=== PATIENT | female | born 1955 | race Caucasian/White ===

== ENCOUNTER 2024-11-16 11:43 | Inpatient (IN) ==
--- NOTE | 2024-11-16 12:44 | XRay Report ---
XR chest 1V portable CLINICAL HISTORY: HTN COMPARISON STUDY: None FINDINGS: Heart size and pulmonary vasculature are normal. Lungs are hyperexpanded. No consolidation or pleural effusion seen. No pneumothorax. IMPRESSION: No acute findings. ACT 112: Negative or not required by law. Electronically signed by: Ba Mann M.D. 11/16/2024 12:43 PM
[2024-11-16 12:48] LABS: Hematocrit (blood only) 38.1 % (37.0-47.0); Hemoglobin 12.8 g/dl (12.0-16.0); Immature Granulocytes # (auto) 0.04 K/uL (0.01-0.20); Immature Granulocytes % (auto) 0.3 %; Mean Corpuscular Hemoglobin 31.4 pg (25.0-34.0); Mean Corpuscular Volume 93.4 fL (80.0-100.0); Platelet Count 227 K/uL (130-400); RDW Standard Deviation 42.5 fL (36.4-46.3); Red Blood Count 4.08 M/uL (4.20-5.40); White Blood Count 13.02 K/ul (4.8-10.8)
[2024-11-16 13:06] LABS: Alanine Aminotransferase 40.0 U/L (7-52); Albumin Globulin Ratio 1.0 (0.9-2); Albumin Level 3.7 gm/dl (3.4-5.0); Alkaline Phosphatase 117.0 U/L (34-104); Anion Gap 8.0 (3-11); Bilirubin,Total 0.4 mg/dl (0.2-1.0); Blood Urea Nitrogen 23.0 mg/dl (6-23); Calcium 9.3 mg/dl (8.6-10.3); Carbon Dioxide 26.0 mmol/L (21-32); Chloride 102.0 mmol/L (98-107); Creatinine Clr Calc Pharmacy 51.0 ml/min; Globulin 3.6 gm/dl (2.5-4.0); Glucose 109.0 mg/dl (70-99(Fasting)); Potassium 4.0 mmol/L (3.5-5.1); Sodium 136.0 mmol/L (136-145); Total Protein 7.3 gm/dl (6.0-8.3)
--- NOTE | 2024-11-16 13:06 | Emergency Department Note ---
History of Present Illness General Chief complaint: Hypertension Stated complaint: IV FOR SODIUM AN DMAGNESIUM Time Seen by Provider: 11/16/24 12:12 Source: patient Mode of arrival: ambulatory Limitations: no limitations History of Present Illness Maximum Pain Intensity: 4 Patient is a 69-year-old female with history of RA and hypertension who presents for uncontrolled high blood pressure at home. She states for the past few weeks she has thought that her blood pressure was elevated however she went to pain management on Wednesday they told her that her blood pressure was too high. She says starting on Wednesday she started to notice some numbness to the mouth as well as gait dysfunction. She says her right leg "just gives out on her". She says she has had this before related to her high blood pressure but never come into the hospital for it. Patient states she does take metoprolol and losartan. She took an extra dose of metoprolol last night and an extra half dose this morning. She recently had 2 injections in her spine on Wednesday and restarted her prednisone and biologic for her RA this week after being off of it since last Wednesday. Patient denies any visual changes, speech changes, headache, facial droop, numbness or weakness to her extremities. Denies any room spinning dizziness at rest. No reported headache, chest pain, shortness of breath, abdominal pain. Home Medications Medication Instructions Recorded Confirmed Type abatacept 125 mg/mL subcutaneous 125 mg subcut DIRECTED 08/25/24 History auto-injector (Orencia ClickJect) duloxetine 60 mg capsule,delayed 60 mg PO DAILY 08/25/24 History release losartan 25 mg tablet 25 mg PO DAILY 08/25/24 History magnesium oxide 400 mg (241.3 mg 400 mg PO DAILY #7 tabs 08/25/24 Rx magnesium) tablet (MagOx) metformin 500 mg tablet,extended 500 mg PO DAILY 08/25/24 History release 24 hr metoprolol tartrate 50 mg tablet 50 mg PO DIRECTED 08/25/24 History pantoprazole 40 mg tablet,delayed 40 mg PO DAILY 08/25/24 History release prednisone 5 mg tablet 5 mg PO DAILY 08/25/24 History Past Med/Surg History Problem List Medical History Hypertension Social History Smoking Status: Current every day smoker Tobacco Type: Cigarettes Preferred Language: Albanian Feels Safe at Home: Yes Review of Systems Review of systems negative outside of positive findings mentioned in HPI. Physical Exam Vital Signs Vital Signs - 24 hr 11/16/24 11:46 11/16/24 12:17 11/16/24 12:35 Temperature 36.5 C Temperature Source Temporal Artery Scan Pulse Rate 72 65 Pulse Rate [Apical] 72 Respiratory Rate 18 20 Respiratory Effort / Characteristics Non-Labored Spontaneous Non-Labored Respiratory Depth Normal Normal Blood Pressure 163/86 H Blood Pressure [Right Arm] 209/90 H Blood Pressure Mean 111 Blood Pressure Mean [Right Arm] 129 Blood Pressure Position Sitting Pulse Oximetry 98 97 Oxygen Delivery Method Room Air Room Air Sepsis Recent Fever Within 48 Hours No Sepsis New/Unexplained Change in Mental Status No Sepsis Action Taken by Nursing No Action Required See below. Constitutional WD/WN, vitals as above Eyes PERRL, conjunctivae normal, anicteric sclerae Respiratory normal respiratory effort, lungs clear to auscultation Cardiovascular RRR, no murmur, no edema Gastrointestinal (Abdomen) normal bowel sounds, soft, nontender, no hepatosplenomegaly Musculoskeletal no cyanosis or clubbing, extremities motor strength 5/5 Skin no rashes, warm and dry Psychiatric Cranial nerves II through XII are intact, normal speech, 5 out of 5 strength in the upper and lower extremities bilaterally, no dysmetria noted in the upper or lower extremities, no visual field cuts noted, NIHSS of 0 Medical Decision Making Laboratory Data 11/16/24 12:01 11/16/24 12:01 Lab Results 11/16/24 Range/Units 12:01 WBC 13.02 H (4.8-10.8) K/ul RBC 4.08 L (4.20-5.40) M/uL Hgb 12.8 (12.0-16.0) g/dl Hct 38.1 (37.0-47.0) % MCV 93.4 (80.0-100.0) fL MCH 31.4 (25.0-34.0) pg MCHC 33.6 (32.0-36.0) g/dL RDW Std Deviation 42.5 (36.4-46.3) fL RDW Coeff of Grey 12.4 (11.5-14.5) % Plt Count 227 (130-400) K/uL MPV 10.2 (9.4-12.4) fL Immature Gran % (Auto) 0.3 % Neut % (Auto) 79.0 % Lymph % (Auto) 10.4 % [place] % (Auto) 10.0 % Eos % (Auto) 0.1 % Baso % (Auto) 0.2 % Neut # (Auto) 10.28 H (1.40-6.50) K/uL Lymph # (Auto) 1.36 (1.20-3.40) K/uL [place] # (Auto) 1.30 H (0.11-0.59) K/uL Eos # (Auto) 0.01 (0.00-0.50) K/uL Baso # (Auto) 0.03 (0.00-0.20) K/uL Immature Gran # (Auto) 0.04 (0.01-0.20) K/uL Imaging Data Radiologist's Impression: Chest X-Ray 11/16/24 12:21 XR chest 1V portable CLINICAL HISTORY: HTN COMPARISON STUDY: None FINDINGS: Heart size and pulmonary vasculature are normal. Lungs are hyperexpanded. No consolidation or pleural effusion seen. No pneumothorax. IMPRESSION: No acute findings. ACT 112: Negative or not required by law. Electronically signed by: Ba Mann M.D. 11/16/2024 12:43 PM Discharge Plan Visit Data Chief Complaint: Hypertension Stated Complaint: IV FOR SODIUM AN DMAGNESIUM ED Provider: Luis Enrique Toledo Forms Stand Alone Forms: My [facility] Prescriptions Prescriptions: No Action prednisone 5 mg tablet 5 mg PO DAILY pantoprazole 40 mg tablet,delayed release (DR/EC) 40 mg PO DAILY losartan 25 mg tablet 25 mg PO DAILY metoprolol tartrate 50 mg tablet 50 mg PO DIRECTED metformin 500 mg tablet extended release 24 hr 500 mg PO DAILY duloxetine 60 mg capsule,delayed release(DR/EC) 60 mg PO DAILY Orencia ClickJect 125 mg/mL auto-injector 125 mg SUBCUT DIRECTED magnesium oxide [MagOx] 400 mg (241.3 mg magnesium) tablet 400 mg PO DAILY Qty: 7 0RF Referrals Referrals: Wilbert Skaggs MD [Primary Care Provider] -
--- NOTE | 2024-11-16 13:15 | CT Scan Report ---
CT head/brain wo con CLINICAL HISTORY: 69 years-old Female with Unsteady gait. TECHNIQUE: Multiple axial CT images of the head were obtained without contrast. A dose lowering tech nique was utilized adhering to the principles of ALARA. CT DOSE: 703.85 mGy.cm COMPARISON: None. FINDINGS: No acute intracranial hemorrhage, midline shift, intracranial mass, hydrocephalus, territorial ischem ia or abnormal extra-axial collection. Involutional changes with white matter hypodensities suggestiv e of chronic microvascular ischemic disease. Study is mildly motion degraded. Age-indeterminate small lacunar infarct of the left thalamus, image 15 series 2. Chronic infarct versus prominent perivascul ar space involving the right basal ganglia on image 14 series 2. The calvarium is intact. The paranasal sinuses, mastoid air cells, and middle ear cavities are clear . IMPRESSION: 1. No definite acute intracranial abnormality identified. 2. Age indeterminate subcentimeter left thalamic lacunar infarct. ACT 112: Negative or not required by law. The above report was generated using voice recognition software. It may contain grammatical, syntax o r spelling errors. Electronically signed by: Jose Manuel Will M.D. 11/16/2024 1:14 PM
--- NOTE | 2024-11-16 14:45 | History & Physical Report ---
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 No recent changes to home antihypertensive regimen. SBP persistently in the 170s-220s over the past 2 weeks despite compliance with home antihypertensive regimen. Experiences coinciding dizziness, floaters in vision, unsteady gait, centralized chest pressure, SOB and lower lip tingling with this. BP 163/86 upon arrival to ED. 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 SBP was still in the 180s 1hr after taking her normal antihypertensive doses this AM which is why she decided to take an additional 1/2 dose of her Lopressor. BP started to uptrend in ED, recorded BP 209/89 at 12:35. Was administered IV hydralazine 10mg at 13:11. BP downtrended slightly to 187/95 at 13:58 s/p IV hydralazine and then uptrended again to 221/104 at 14:45. At the time of my evaluation in the ED around 15:30, patient's BP was 244/112. Patient was symptomatic with this. Described centralized chest pressure, SOB and lower lip tingling. Hypertensive emergency History as per above. No focal deficits appreciated on exam. ? acute vs subacute vs chronic left thalamic infarct as below. Troponin x 1 negative, will repeat. EKG personally reviewed: lots of artifact, possible ST depression in lateral leads. Repeat EKG with chest pain PRN. Case discussed between undersigned attending physician and ICU physician on- call, Dr. Martin. -Initial consideration was made for possible IV esmolol or nicardipine drip. -Holding off on initiation of antihypertensive drip for now. Advised to trial additional doses of Lopressor 50mg, losartan 50mg. Will tentatively continue Lopressor 50mg, losartan 50mg tomorrow morning - ? possibly require an additional agent vs initiation of drip if BP not improving with above measures. Age indeterminate small lacunar infarct of the left thalamus seen on head CT Possibly due to recently uncontrolled BP. 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 Brain MRI ordered and pending. TTE ordered and pending. Appreciate neurology consult. Check hemoglobin A1c, lipid panel in AM. Leukocytosis Suspect reactive elevation in setting of above. No clear signs or symptoms of infection. Monitor trend in AM. DMII Hold metformin, SSI protocol while admitted. Follow BSG checks ACHS, hemoglobin A1c pending as per above. Tobacco use disorder Smokes 1ppd, has been smoking since around age 11. Declined need for nicotine patch at this time. Cessation encouraged. Alcohol use Consumes approximately 4 glasses of wine/night x several years. No prior history of alcohol withdrawal or alcohol withdrawal seizures. AWSS protocol with PRN IV Ativan, monitor AWSS. Rheumatoid arthritis Chronic bilateral hand weakness which is unchanged from baseline. BUE strength 5/5 on exam. On prednisone 5mg daily (on this for over 3 years), can continue. 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 Fibromyalgia Recently had epidural injections done this past Wednesday, reports done in mid back. Continue duloxetine. Hepatic steatosis LFTs appear to be around baseline, continue to monitor. GERD Continue PPI. DVT Prophylaxis: SCDs/TEDs only for now Code Status: FULL CODE PCP: Micaela Kelley MD Disposition: Observation in PCU for now Patient seen in collaboration with Dr. Mosher. Please see addendum. I spent a total of 72 minutes coordinating, documenting, and providing care for this patient excluding time spent in the performance of separately billed services or time spent by another provider/QHP. This included personally reviewing all current laboratories and imaging studies, medical reconciliation, outpatient chart review and discussion with specialists. This chart was completed in part utilizing Speech Voice Recognition Software. Grammatical errors, random word insertions, pronoun errors, and incomplete sentences are an occasional consequence of this system due to software limitations, ambient noise, and hardware issues. Any formal questions or concerns about the content, text, or information contained within the body of this dictation should be directly addressed to the provider for clarification. 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 History obtained from the patient, patient's at bedside, discussion with ED provider and associated chart review. Uncontrolled HTN for the last 2 weeks. 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 No recent changes to antihypertensive regimen. Prior to the past 2 weeks, patient states her BP was "well-controlled." Has been checking BP at home. SBP has been persistently in the 170s-220s despite compliance with her current ant ihypertensive regimen. Had a solitary spell of dizziness when this all started 2 weeks ago. Lasted several hours. Had several falls during this time frame. Resolved spontaneously. No further bouts of isolated dizziness since then. Has occasionally had her right knee "lock up" on her over the last week which seems to make her gait unsteady at times. Denies any lower extremity weakness or paraesthesias. Has noticed some floaters in her vision occasionally over the last 2 weeks. And when her BP rises into the 200s systolic she experiences centralized chest pressure and SOB. Has chronic bilateral hand weakness from her RA which is unchanged from baseline. Denies any upper extremity paraesthesias. No observed speech or facial deficits per her . Has experienced some lower lip tingling since Wednesday. Had epidural spinal injections for her fibromyalgia on Wednesday, was noted to be hypertensive at that visit. Unsure what her BP was at that time. BP 163/86 upon arrival to ED. 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 Admits that her SBP was still in the 180s approximately 1hr after taking her normal antihypertensive doses this morning which is why she decided to take an additional 1/2 dose of her Lopressor. BP started to uptrend in ED, recorded BP 209/89 at 12:35. Was administered IV hydralazine 10mg at 13:11. BP downtrended slightly to 187/95 at 13:58 and then uptrended again to 221/104 at 14:45. At the time of my evaluation in the ED around 15:30, patient's BP was 244/112. Patient was symptomatic with this. Described centralized chest pressure, SOB and lower lip tingling. No focal deficits appreciate on exam. Allergies Allergy/AdvReac Type Severity Reaction Status Date / Time No Known Allergies Allergy Verified 11/16/24 14:54 Home Medications Medication Instructions Recorded Confirmed Type abatacept 125 mg/mL subcutaneous 125 mg subcut WK 08/25/24 11/16/24 History auto-injector (Orencia ClickJect) duloxetine 60 mg capsule,delayed 60 mg PO DAILY 08/25/24 11/16/24 History release losartan 25 mg tablet 25 mg PO DAILY 08/25/24 11/16/24 History metformin 500 mg tablet,extended 500 mg PO QDL 08/25/24 11/16/24 History release 24 hr metoprolol tartrate 50 mg tablet 50 mg PO BID 08/25/24 11/16/24 History pantoprazole 40 mg tablet,delayed 40 mg PO QDL 08/25/24 11/16/24 History release prednisone 5 mg tablet 5 mg PO QDL 08/25/24 11/16/24 History Past Med/Surg History Problem List Left thalamic infarction Hypertensive emergency Stroke-like symptoms Medical History Hypertension Social History Smoking Status: Current every day smoker Tobacco Type: Cigarettes Preferred Language: [place] Feels Safe at Home: Yes Review of Systems Review of Systems: At least ten systems reviewed and negative, except as noted in the HPI. Physical Exam Physical Exam: General: Elderly F, sitting up in bed, A&Ox3, conversing appropriately at bedside HEENT: Normocephalic, atraumatic, external ear and nose normal, oropharynx normal Respiratory: Normal respiratory effort, CTAB Cardiovascular: RRR, normal peripheral pulses, no BLE edema Abdomen/GI: Normal bowel sounds, soft, nontender to palpation in all quadrants Neurologic: No focal deficits appreciated, extremity motor strength intact, actively moves all extremities Results & Data Results & Data Vital Signs (Past 12 Hours) Vital Signs Temp Pulse Pulse Resp BP BP Pulse Ox 11/16/24 13:58 73 18 187/95 H 98 11/16/24 13:12 68 20 232/100 H 97 11/16/24 12:35 72 20 209/90 H 97 11/16/24 12:17 65 11/16/24 11:46 36.5 C 72 18 163/86 H 98 O2 Del Method 11/16/24 13:58 Room Air 11/16/24 13:12 Room Air 11/16/24 12:35 Room Air 11/16/24 12:17 11/16/24 11:46 Room Air Laboratory Results Short CBC 11/16/24 Range/Units 12:01 WBC 13.02 H (4.8-10.8) K/ul Hgb 12.8 (12.0-16.0) g/dl Hct 38.1 (37.0-47.0) % Plt Count 227 (130-400) K/uL BMP 11/16/24 12:01 Sodium 136 Potassium 4.0 Chloride 102 Carbon Dioxide 26 BUN 23 Creatinine 0.86 Glucose 109 H Calcium 9.3 Liver Function 11/16/24 Range/Units 12:01 Total Bilirubin 0.4 (0.2-1.0) mg/dl AST 43 H (13-39) U/L ALT 40 (7-52) U/L Alkaline Phosphatase 117 H (34-104) U/L Albumin 3.7 (3.4-5.0) gm/dl Diagnostic Findings Chest X-Ray 11/16/24 12:21 XR chest 1V portable CLINICAL HISTORY: HTN COMPARISON STUDY: None FINDINGS: Heart size and pulmonary vasculature are normal. Lungs are hyperexpanded. No consolidation or pleural effusion seen. No pneumothorax. IMPRESSION: No acute findings. ACT 112: Negative or not required by law. Electronically signed by: Ba Mann M.D. 11/16/2024 12:[address] 11/16/24 12:21 CT head/brain wo con CLINICAL HISTORY: 69 years-old Female with Unsteady gait. TECHNIQUE: Multiple axial CT images of the head were obtained without contrast. A dose lowering technique was utilized adhering to the principles of ALARA. CT DOSE: 703.85 mGy.cm COMPARISON: None. FINDINGS: No acute intracranial hemorrhage, midline shift, intracranial mass, hydrocephalus, territorial ischemia or abnormal extra-axial collection. Involutional changes with white matter hypodensities suggestive of chronic microvascular ischemic disease. Study is mildly motion degraded. Age- indeterminate small lacunar infarct of the left thalamus, image 15 series 2. Chronic infarct versus prominent perivascular space involving the right basal ganglia on image 14 series 2. The calvarium is intact. The paranasal sinuses, mastoid air cells, and middle ear cavities are clear. IMPRESSION: 1. No definite acute intracranial abnormality identified. 2. Age indeterminate subcentimeter left thalamic lacunar infarct. ACT 112: Negative or not required by law. The above report was generated using voice recognition software. It may contain grammatical, syntax or spelling errors. Electronically signed by: Jose Manuel Will M.D. 11/16/2024 1:14 PM Medications Administered Discontinued Medications Hydralazine HCl (Hydralazine Hcl 20 Mg/Ml Vial) 10 mg IV NOW STA Stop: 11/16/24 12:57 Last Admin: 11/16/24 13:11 Dose: 10 mg Documented By: MMG Supervising Physician Co-Signing Physician Notes Patient seen and examined at bedside. Patient doing ok today. States she is having pressure in her chest, some mouth numbness as well. States it started today. On exam, appears well overall, tobacco smell in room. WBC of 13 with neutrophil predominance. NIHSS of 0. Mildly elevated LFTs likely in setting of fatty liver disease. CT head with age indeterminate thalamic infarct. Patient presenting with hypertensive emergency, given BP of 230/130 on presentation with chest pain and SOB without another clear etiology. Discussed case with ICU attending, keenan recmartha, will attempt PO medications first before consideration of drip if needed. No localizing symptoms for infection, leukocytosis potentially reactive to elevated BP vs. viral illness. Will check biofire, UA. Alcohol use noted as well, will do AWSS scoring. Consideration for recrudescence of prior stroke as given old lacunar infarct noted on CT imaging, and no localization of symptoms. Stroke order set ordered, hold off on further workup/treatment until MR brain done after hypertension stabilization, check lipids, TSH, A1c for metabolic workup, PT/OT/speech all ordered. I have seen and discussed the case with the collaborating advanced practitioner. I agree with the above H&P. I have reviewed and confirmed the patients medical history, the findings on physical examination, and the patients diagnosis and treatment plan with Mac MCCLELLAND and agree with the information documented. I spent a total of 60 minutes coordinating, documenting, and providing care for this patient excluding time spent in the performance of separately billed services. All of the aforementioned completed outside of collaborating with the assigned advanced practitioner for a full treatment plan. I have reviewed the advanced practitioner's documentation, and I agree with, and take responsibility for the plan of care
--- NOTE | 2024-11-16 15:17 | Electrocardiogram Report ---
Test Reason : Blood Pressure : */* mmHG Vent. Rate : 64 BPM Atrial Rate : 64 BPM P-R Int : 124 ms QRS Dur : 68 ms QT Int : 422 ms P-R-T Axes : 69 21 79 degrees QTcB Int : 435 ms Normal sinus rhythm Septal infarct (cited on or before 25-Aug-2024) Abnormal ECG When compared with ECG of 25-Aug-2024 16:37, No significant change was found Confirmed by Yonathan Kelley ([id number]) on 11/16/2024 3:16:58 PM Referred By: REFERRED SELF Confirmed By: Yonathan Kelley
[2024-11-16] MEDS ORDERED: STAT IV Infusion **Titration per Protocol STA (15:54)
[2024-11-16] MEDS ORDERED: ESMOLOL / NSS 2,500 MG/250 ML BAG IV SCH (16:00)
[2024-11-16] MEDS ORDERED: LORazepam Inj 1 MG in SYRINGE 0.5 ML IV PRN (16:08)
[2024-11-16] MEDS: LOSARTAN POTASSIUM 50 MG TAB PO STA (16:35)
[2024-11-16] MEDS: METOPROLOL TARTRATE 50 MG TAB PO STA (16:35)
[2024-11-16] MEDS: ESMOLOL BOLUS FROM BAG IV ONE (17:22)
[2024-11-16] MEDS: STAT IV Infusion **Titration per Protocol STA (17:23)
[2024-11-16] MEDS ORDERED: GLUCAGON FOR INJ 1 MG VIAL SQ PRN (17:36)
[2024-11-16] MEDS ORDERED: ONDANSETRON INJ 2 MG/ML 2 ML VIAL IV PRN (17:36)
[2024-11-16] MEDS ORDERED: ACETAMINOPHEN 325 MG TAB PO PRN (17:36)
[2024-11-16] MEDS ORDERED: GLUCOSE 10 TAB/TUBE PO PRN (17:36)
[2024-11-16] MEDS ORDERED: PHARMACIST DISCHARGE MED REC CONSULT PRN (17:36)
[2024-11-16] MEDS ORDERED: GLUCOSE 40% GEL 15 GM TUBE PO PRN (17:36)
[2024-11-16] MEDS ORDERED: CARBOHYDRATES FOR HYPOGLYCEMIA PO PRN (17:36)
[2024-11-16] MEDS ORDERED: DEXTROSE 50% 50 ML SYRINGE IV PRN (17:36)
[2024-11-16] MEDS ORDERED: PHARMACY GLYCEMIC MGMT CONSULT PRN (17:36)
[2024-11-16] MEDS ORDERED: Nursing to Pharmacy Communication SCH (18:45)
[2024-11-16] MEDS: INSULIN ASPART PER UNIT CHARGE SC SCH (18:50)
--- NOTE | 2024-11-16 18:51 | Pharmacy Report ---
Pharmacy Glycemic Short Note 2 - Date of Service November 16, 2024 - Glycemic Short BSG Results (Last 24 hours): 11/16/24 11/16/24 12:01 18:02 Glucose 109 H POC Glucose 99 OUTPATIENT ANTIDIABETIC REGIMEN: * metformin 500mg QDL * A1c pending ASSESSMENT: * Patient admitted with hypertensive urgency, not hyperglycemic since admission. * Will initiated a moderate stress NovoLog scale to start. * Patient is ordered a diet and continued on home prednisone 5mg daily. PLAN FOR INPATIENT GLYCEMIC CONTROL: * Hold outpatient oral diabetes medications * Basal insulin * none * Bolus insulin * NovoLog per scale ACHS or Q6hrs while NPO * Goal Range: Low 110 mg/dL - High 150 mg/dL * Correction Factor: 35 mg/dL/unit * Nutritional / Prandial insulin per carb ratio of 1 unit per 11 grams CHO consumed
[2024-11-16 19:55] LABS: Chlamydia pneumoniae PCR Not Detected (NotDetected); Coronavirus 229E PCR Not Detected (NotDetected); Coronavirus CoV-2 (COVID19)PCR Not Detected (NotDetected); Coronavirus HKU1 PCR Not Detected (NotDetected); Coronavirus NL63 PCR Not Detected (NotDetected); Coronavirus OC43PCR Not Detected (NotDetected); Human Metapneumovirus PCR Not Detected (NotDetected); Parainfluenza Virus 1 PCR Not Detected (NotDetected); Parainfluenza Virus 2 PCR Not Detected (NotDetected); Parainfluenza Virus 3 PCR Not Detected (NotDetected); Parainfluenza Virus 4 PCR Not Detected (NotDetected); Respiratory Syncytial VirusPCR Not Detected (NotDetected); Rhinovirus/Enterovirus PCR Not Detected (NotDetected)
[2024-11-16] MEDS: LABETALOL HCL IV 5 MG/ML 20ML IV STA (20:10)
[2024-11-16 21:28] LABS: Appearance Urine Clear (Clear); Bacteria Urine Automated None Seen (None Seen); Cast Urine Automated 0-2 /lpf (0-2); Epithelial Cell Urine Auto 0-2 /hpf (0-2); Glucose Urine UA Negative (Negative); RBC Urine Automated 0-2 /hpf (0-2); WBC Urine Automated 0-5 /hpf (0-5)
--- NOTE | 2024-11-16 22:19 | Magnetic Resonance Report ---
Exam(s): MRI HEAD Without Contrast EXAM: MR Head Without Intravenous Contrast CLINICAL HISTORY: Age indeterminate CVA on head CT. TECHNIQUE: Magnetic resonance images of the head/brain without intravenous contrast in multiple planes. COMPARISON: CT Brain 11-16-2024. FINDINGS: Brain: Age-appropriate central and peripheral atrophy. 6 x 8 mm acute nonhemorrhagic left thalamic lacunar infarct without mass effect. Mild degree of supratentorial periventricular and subcortical white matter hyperintensities on FLAIR and T2-weighted images. No acute hemorrhage or abnormal extra-axial fluid collection. Ventricles: No midline shift. No ventriculomegaly. Bones/joints: Unremarkable. No acute fracture. Sinuses: Unremarkable as visualized. No acute sinusitis. Mastoid air cells: Unremarkable as visualized. No mastoid effusion. Orbits: Unremarkable as visualized. IMPRESSION: 1. Acute nonhemorrhagic left thalamic lacunar infarct without mass effect 2. Nonspecific white matter changes most commonly seen with small vessel disease. Communications: Call Doctor Stroke Electronically signed by: Gokul Gray M.D. 11/16/24 22:18 PM
[2024-11-16] MEDS: ASPIRIN 81 MG CHEW PO STA (23:25)
[2024-11-17] MEDS: LABETALOL HCL IV 5 MG/ML 20ML IV PRN (04:13)
[2024-11-17 06:13] LABS: Hematocrit (blood only) 36.8 % (37.0-47.0); Hemoglobin 12.3 g/dl (12.0-16.0); Mean Corpuscular Hemoglobin 31.4 pg (25.0-34.0); Mean Corpuscular Volume 93.9 fL (80.0-100.0); Platelet Count 178 K/uL (130-400); RDW Standard Deviation 42.4 fL (36.4-46.3); Red Blood Count 3.92 M/uL (4.20-5.40); White Blood Count 6.38 K/ul (4.8-10.8)
[2024-11-17 06:27] LABS: Alanine Aminotransferase 32.0 U/L (7-52); Albumin Globulin Ratio 1.2 (0.9-2); Albumin Level 3.8 gm/dl (3.4-5.0); Alkaline Phosphatase 102.0 U/L (34-104); Anion Gap 9.0 (3-11); Bilirubin,Total 0.5 mg/dl (0.2-1.0); Blood Urea Nitrogen 18.0 mg/dl (6-23); Calcium 9.2 mg/dl (8.6-10.3); Carbon Dioxide 25.0 mmol/L (21-32); Chloride 103.0 mmol/L (98-107); Cholesterol 178.0 mg/dl (0-200); Creatinine Clr Calc Pharmacy 66.1 ml/min; Globulin 3.2 gm/dl (2.5-4.0); Glucose 113.0 mg/dl (70-99(Fasting)); HDL Cholesterol 45.0 mg/dl; Magnesium 1.6 mg/dl (1.7-2.4); Potassium 3.6 mmol/L (3.5-5.1); Sodium 137.0 mmol/L (136-145); Total Protein 7.0 gm/dl (6.0-8.3); Triglycerides 121.0 mg/dl (0-150)
[2024-11-17] MEDS: MAGNESIUM SULFATE / D5W 1 GM/100 ML BAG IV SCH (07:09)
[2024-11-17 07:32] LABS: Hemoglobin A1C 5.6 % (4.5-5.6)
[2024-11-17] MEDS: METOPROLOL TARTRATE 50 MG TAB PO SCH (08:17)
[2024-11-17] MEDS: LOSARTAN POTASSIUM 50 MG TAB PO SCH (08:17)
[2024-11-17] MEDS: THIAMINE HCL 100 MG TAB PO SCH (08:18)
[2024-11-17] MEDS: FOLIC ACID 1 MG TAB PO SCH (08:19)
[2024-11-17] MEDS: MULTIVITAMIN TAB PO SCH (08:19)
--- NOTE | 2024-11-17 08:58 | Cardiology Consultation ---
Date of Consultation November 17, 2024 Assessment & Plan (1) Hypertensive emergency: (2) Left thalamic infarction: Plan Assessment: 69 year old female admitted for hypertensive emergency despite medication compliance. CT and confirmed MRI imaging show acute Left Thalamic infarction. Cardiology consulted for further assessment/recommendations. Plan: 1. Hypertensive Emergency 2. Acute Left thalamic infarction -Systolic blood pressures as high as 240's at time of admission. Now show significant improvement 169/63. -Echocardiogram with negative bubble study and no structural abnormalities -Continue Losartan 50mg PO Daily, Metoprolol tartrate 50mg PO BID, and amlodipine 5mg PO QD -Review of telemetry shows no evidence of A-fib or arrhythmia. Continue to monitor -Neurology on consult. Appreciate recs. Case has been discussed with Dr. Quinteros. Further recommendations regarding plan of care as per his assessment. I spent a total of 50 minutes on the date of service in preparation, delivery, documentation of the care provided to the patient excluding any time spent in the performance of separately billed services. MANJINDER Puentes [facility] Cardiology [facility] Supervising Physician Co-Signing Physician Notes Patient seen and examined. Past medical history, surgical history, social history and family history have been reviewed. The medical record and all the above studies have been reviewed. Case DW JUNIOR including management. Hypertensive Emergency Acute Left thalamic infarction DM Rheumatoid arthritis Fibromyalgia Echocardiogram with negative bubble study -as above Neurology eval adjust anti-HTN meds as per Neuro parameters for permissive HTN Use Losartan and Norvasc avoid using beta yusuf as first line anti-HTN med correct and f/u electrolytes Statin DM optimization - defer to hospitalist avoid hypovolemia keep patient euvolemic DVT prophylaxis History of Present Illness Reason for Consultation: Hypertensive emergency Requesting Physician: [facility] hospitalist Attending Physician: Wiley Salgado MD History of Present Illness HPI: Patient is a 69 year old female with PMHx significant for HTN, PVC's, Type II DM, fatty liver disease, fibromyalgia, OA/RA, anxiety and insomnia that presented with a two week history of uncontrolled blood pressures. Patient states that she has been having intermittent episodes of dizziness, floaters in her vision, unsteady gait, chest pressure, shortness of breath and lower lip tingling. She reports that she would have these symptoms when her systolic blood pressure was ranging from 170-220s. She feels these intermittent symptoms have been ongoing for approx 2 weeks. She did not previously monitor her BP at home until the past week when symptoms would present. Patient endorses medication compliance and no recent acute illness, no significant medication changes, no use of OTC medications. She did have a spine injection on 11/13/2024. Upon seeing patient today she reports feeling well without acute complaint. Blood pressures are 150-160's systolic at this time and she is asymptomatic. She denies any visual disturbances, no chest pain, pressure or palpitations, no unilateral weakness, no speech difficulty or word finding. EKG on admission NSR, prior cited septal infarct. Rate 64bpm, QTC 435ms Chest xray: No acute findings Head CT: IMPRESSION: 1. No definite acute intracranial abnormality identified. 2. Age indeterminate subcentimeter left thalamic lacunar infarct. MRI: IMPRESSION: 1. Acute nonhemorrhagic left thalamic lacunar infarct without mass effect 2. Nonspecific white matter changes most commonly seen with small vessel disease. Review of telemetry shows SR with occasional PAC's rates 70-80's. No acute events overnight. Allergies Allergy/AdvReac Type Severity Reaction Status Date / Time No Known Allergies Allergy Verified 11/16/24 14:54 Home Medications Medication Instructions Recorded Confirmed Type abatacept 125 mg/mL subcutaneous 125 mg subcut WK 08/25/24 11/16/24 History auto-injector (Orencia ClickJect) duloxetine 60 mg capsule,delayed 60 mg PO DAILY 08/25/24 11/16/24 History release losartan 25 mg tablet 25 mg PO DAILY 08/25/24 11/16/24 History metformin 500 mg tablet,extended 500 mg PO QDL 08/25/24 11/16/24 History release 24 hr metoprolol tartrate 50 mg tablet 50 mg PO BID 08/25/24 11/16/24 History pantoprazole 40 mg tablet,delayed 40 mg PO QDL 08/25/24 11/16/24 History release prednisone 5 mg tablet 5 mg PO QDL 08/25/24 11/16/24 History Patient History Medical History Hypertension Social History Smoking Status: Current every day smoker Tobacco Type: Cigarettes Cigarettes Per Day: 1 pack; Hx Alcohol Use: Yes Alcohol type: wine Hx Substance Use: No Preferred Language: Norwegian Communication Ability: Effective Manufacturing Team Member Required: No Beliefs That Will Affect Care: None Current Living Situation: Spouse Current Living Situation Comment: home with 2 dogs Feels Safe at Home: Yes Safety Concerns: Feels Safe At This Time Assistive Devices: None Review of Systems Review of Systems: All systems reviewed & are unremarkable except as noted in HPI & below Physical Exam Constitutional: well developed and well nourished; no acute distress and not ill appearing Neck: normal visual inspection and trachea midline Respiratory: normal respiratory effort, lungs clear to auscultation no cough Auscultation: no crackles, no rales, no rhonchi and no wheezes Cardiovascular: Rate/Rhythm: regular rate and regular rhythm Heart Sounds: normal S1 and normal S2; no murmur Vessels: dorsalis pedis pulses present; no JVD Extremities: no edema Skin: no rashes, warm and dry Psychiatric: A+Ox3, euthymic affect Results & Data Vital Signs (Past 12 Hours) Vital Signs Temp Pulse Pulse Resp BP BP BP 11/17/24 08:03 37.0 C 77 22 158/69 H 11/17/24 07:15 64 11/17/24 05:36 178/79 H 11/17/24 04:28 72 171/77 H 11/17/24 04:13 69 193/77 H 11/17/24 03:38 37.2 C 67 18 218/79 H 217/70 H 11/16/24 23:16 36.8 C 62 20 169/81 H 11/16/24 22:34 63 Pulse Ox O2 Del Method 11/17/24 08:03 97 Room Air 11/17/24 07:15 11/17/24 05:36 11/17/24 04:28 11/17/24 04:13 11/17/24 03:38 97 Room Air 11/16/24 23:16 96 Room Air 11/16/24 22:34 Laboratory Results Cardiac Enzymes 11/16/24 11/16/24 11/17/24 Range/Units 12:01 16:59 05:40 AST 43 H 34 (13-39) U/L Troponin I High Sens 13.4 12.6 (0-14) pg/ml Lipids 11/17/24 Range/Units 05:40 Triglycerides 121 (0-150) mg/dl Cholesterol 178 (0-200) mg/dl HDL Cholesterol 45 mg/dl Cholesterol/HDL Ratio 4.0 (0-5) CBC 11/16/24 11/17/24 Range/Units 12:01 05:40 WBC 13.02 H 6.38 (4.8-10.8) K/ul RBC 4.08 L 3.92 L (4.20-5.40) M/uL Hgb 12.8 12.3 (12.0-16.0) g/dl Hct 38.1 36.8 L (37.0-47.0) % Plt Count 227 178 (130-400) K/uL Neut # (Auto) 10.28 H (1.40-6.50) K/uL Lymph # (Auto) 1.36 (1.20-3.40) K/uL Mckean # (Auto) 1.30 H (0.11-0.59) K/uL Eos # (Auto) 0.01 (0.00-0.50) K/uL Baso # (Auto) 0.03 (0.00-0.20) K/uL Comprehensive Metabolic Panel 11/16/24 11/17/24 Range/Units 12:01 05:40 Sodium 136 137 (136-145) mmol/L Potassium 4.0 3.6 (3.5-5.1) mmol/L Chloride 102 103 (98-107) mmol/L Carbon Dioxide 26 25 (21-32) mmol/L BUN 23 18 (6-23) mg/dl Creatinine 0.86 0.66 (0.6-1.2) mg/dl Glucose 109 H 113 H (70-99(Fasting)) mg/dl Calcium 9.3 9.2 (8.6-10.3) mg/dl AST 43 H 34 (13-39) U/L ALT 40 32 (7-52) U/L Alkaline Phosphatase 117 H 102 (34-104) U/L Total Protein 7.3 7.0 (6.0-8.3) gm/dl Albumin 3.7 3.8 (3.4-5.0) gm/dl Intake and Output 11/16/24 11/17/24 11/17/24 22:59 06:59 14:59 Intake Total 0 / 0 181.667 / 181.667 Output Total 225 / 775 550 / 775 150 / 150 Balance -225 / -775 -550 / -775 31.667 / 31.667 Intake: IV 181.667 / 181.667 Magnesium Sulfate / D5w 1 gm In 181.667 / 181.667 100 ml @ 50 mls/hr IV Q2H WEN Rx#:[id number] Oral 0 / 0 Output: Urine 225 / 775 550 / 775 150 / 150 Other: Other Intake Source NPO Weight 69.1 kg 68.4 kg Weight Measurement Method Built in BedsPreApps Standing Scale Diagnostic Findings 11/17/24 ECHO Interpretation Summary Left ventricular systolic function is normal. Left Ventricular Ejection Fraction = 55-60%. Diastolic dysfunction, Grade II (pseudonormalization pattern). There is mild mitral regurgitation. The interatrial septum is intact with no evidence for an atrial septal defect. Injection of contrast documented no interatrial shunt. PG Care Time/CCT Total # of Minutes Spent Total Time Spent with Patient: Total time spent is greater than 50% in coordination of care (as documented) at patient's floor/unit and/or counseling patient: [place] [address] IN/OBS CONSULT LVL 5,80M Patient Type New Diagnoses Hypertensive emergency I16.1 Left thalamic infarction I63.81 Time Spent (min) 50
--- NOTE | 2024-11-17 09:19 | XCELERA ---
[id number]
[2024-11-17 09:55] LABS: Thyroid Stimulating Hormone 0.598 uIu/ml (0.300-4.500)
--- NOTE | 2024-11-17 12:04 | Neurology Consultation ---
Date of Consultation November 17, 2024 Assessment & Plan (1) Left thalamic infarction: Breonna Oneal presents with an incidentally discovered small left thalamic stroke in the setting of hypertension. Hypertension likely secondary to the acute stroke though is an independent risk factor as this is a small vessel lacunar stroke. - CT angiography with contrast of the head and neck to evaluate cerebral vasculature. - Continue aspirin for secondary stroke prevention. - Initiate statin therapy to reduce LDL from 109 to <70. - Medicine team to optimize antihypertensive regimen. - Neurology follow-up in 4-6 weeks Telehealth Consultation Telehealth Information Telehealth Information: I performed this visit using a real-time telehealth connection between my location and the patients location ([facility]). After connecting through interactive tele-video, patient was identified by name and date of and/or wristband check.Patient (or authorized healthcare community health program representative) was informed that this was a telemedicine visit and it was being conducted confidentially over secure lines. My office door was closed and no one else was present in the room with me.Patient (or authorized healthcare community health program representative) provided consent to proceed with the visit, expressed an understanding of privacy and security of the telemedicine visit, and gave permission to have a hospital community health program representative in the room in order to assist with the visit and to conduct portions of the visit, as needed. I informed the patient (or authorized healthcare community health program representative) that I reviewed their record and presented the opportunity for them to ask any questions regarding the visit today. The patient agreed to participate. History of Present Illness Reason for Consultation: Stroke Requesting Physician: Dr. Salgado Attending Physician: Wiley Salgado MD History of Present Illness Breonna Oneal is a 69 yo F referred from acute care after elevated blood pressure prompted a CT scan that incidentally demonstrated a small left thalamic stroke, later confirmed by MRI; she reported no new focal deficits, attributing intermittent numbness and weakness to longstanding RA and fibromyalgia. A mild word-finding difficulty was observed during cognitive screening, though no acute neurological changes were described since presentation. She has never had a stroke before, specifically denies any numbness or weakness. Was not taking aspirin at home. Allergies Allergy/AdvReac Type Severity Reaction Status Date / Time No Known Allergies Allergy Verified 11/16/24 14:54 Home Medications Medication Instructions Recorded Confirmed Type abatacept 125 mg/mL subcutaneous 125 mg subcut WK 08/25/24 11/16/24 History auto-injector (Orencia ClickJect) duloxetine 60 mg capsule,delayed 60 mg PO DAILY 08/25/24 11/16/24 History release losartan 25 mg tablet 25 mg PO DAILY 08/25/24 11/16/24 History metformin 500 mg tablet,extended 500 mg PO QDL 08/25/24 11/16/24 History release 24 hr metoprolol tartrate 50 mg tablet 50 mg PO BID 08/25/24 11/16/24 History pantoprazole 40 mg tablet,delayed 40 mg PO QDL 08/25/24 11/16/24 History release prednisone 5 mg tablet 5 mg PO QDL 08/25/24 11/16/24 History Patient History Medical History Hypertension Social History Smoking Status: Current every day smoker Tobacco Type: Cigarettes Cigarettes Per Day: 1 pack; Hx Alcohol Use: Yes Alcohol type: wine Hx Substance Use: No Preferred Language: Cypriot Communication Ability: Effective Manager Legal Required: No Beliefs That Will Affect Care: None Current Living Situation: Spouse Current Living Situation Comment: home with 2 dogs Feels Safe at Home: Yes Safety Concerns: Feels Safe At This Time Assistive Devices: None Review of Systems +word finding difficulties Physical Exam Neurological Examination: Mental Status: Awake and alert. Oriented to person, place, and time. Mild dysfluency with word finding on picture description, some paraphasic errors. Comprehension intact. Affect appropriate. Cranial Nerves: II: Reads NIHSS cards, pupils 3/3 to 2/2, simon grossly intact. III/IV/: Versions intact without nystagmus, no gaze preference. V: Facial sensation symmetric to light touch VII: Facial expression symmetric VIII: Hearing intact to voice Motor: Strength was symmetric and antigravity throughout. Pronator drift was absent. There were no abnormal movements. Sensory: Sensation to light touch was intact. Coordination: No ataxia with FNF Results & Data Vital Signs (Past 12 Hours) Vital Signs Temp Pulse Pulse Resp BP BP BP 11/17/24 11:21 36.6 C 60 12 169/63 H 11/17/24 08:03 37.0 C 77 22 158/69 H 11/17/24 07:15 64 10/10/25 05:36 178/79 H 11/17/24 04:28 72 171/77 H 11/17/24 04:13 69 193/77 H 11/17/24 03:38 37.2 C 67 18 218/79 H 217/70 H Pulse Ox O2 Del Method 11/17/24 11:21 97 Room Air 11/17/24 08:03 97 Room Air 11/17/24 07:15 11/17/24 05:36 11/17/24 04:28 11/17/24 04:13 11/17/24 03:38 97 Room Air Laboratory Results Abnormal lab results 11/16/24 11/16/24 11/17/24 Range/Units 12:01 Unknown 05:40 WBC 13.02 H (4.8-10.8) K/ul RBC 4.08 L 3.92 L (4.20-5.40) M/uL Hct 36.8 L (37.0-47.0) % Neut # (Auto) 10.28 H (1.40-6.50) K/uL Custer # (Auto) 1.30 H (0.11-0.59) K/uL BUN/Creatinine Ratio 26.7 H 27.3 H (10-20) Glucose 109 H 113 H (70-99(Fasting)) mg/dl POC Glucose (70-99) mg/dl Magnesium 1.6 L (1.7-2.4) mg/dl AST 43 H (13-39) U/L Alkaline Phosphatase 117 H (34-104) U/L Urine Protein Trace H (Negative) 11/17/24 Range/Units 07:40 WBC (4.8-10.8) K/ul RBC (4.20-5.40) M/uL Hct (37.0-47.0) % Neut # (Auto) (1.40-6.50) K/uL Custer # (Auto) (0.11-0.59) K/uL BUN/Creatinine Ratio (10-20) Glucose (70-99(Fasting)) mg/dl POC Glucose 122 H (70-99) mg/dl Magnesium (1.7-2.4) mg/dl AST (13-39) U/L Alkaline Phosphatase (34-104) U/L Urine Protein (Negative) Diagnostic Findings Chest X-Ray 11/16/24 12:21 XR chest 1V portable CLINICAL HISTORY: HTN COMPARISON STUDY: None FINDINGS: Heart size and pulmonary vasculature are normal. Lungs are hyperexpanded. No consolidation or pleural effusion seen. No pneumothorax. IMPRESSION: No acute findings. ACT 112: Negative or not required by law. Electronically signed by: Ba Mann M.D. 11/16/2024 12:[address] 11/16/24 12:21 CT head/brain wo con CLINICAL HISTORY: 69 years-old Female with Unsteady gait. TECHNIQUE: Multiple axial CT images of the head were obtained without contrast. A dose lowering technique was utilized adhering to the principles of ALARA. CT DOSE: 703.85 mGy.cm COMPARISON: None. FINDINGS: No acute intracranial hemorrhage, midline shift, intracranial mass, hydrocephalus, territorial ischemia or abnormal extra-axial collection. Involutional changes with white matter hypodensities suggestive of chronic microvascular ischemic disease. Study is mildly motion degraded. Age- indeterminate small lacunar infarct of the left thalamus, image 15 series 2. Chronic infarct versus prominent perivascular space involving the right basal ganglia on image 14 series 2. The calvarium is intact. The paranasal sinuses, mastoid air cells, and middle ear cavities are clear. IMPRESSION: 1. No definite acute intracranial abnormality identified. 2. Age indeterminate subcentimeter left thalamic lacunar infarct. ACT 112: Negative or not required by law. The above report was generated using voice recognition software. It may contain grammatical, syntax or spelling errors. Electronically signed by: Jose Manuel Will M.D. 11/16/2024 1:14 PM Brain MRI 11/16/24 17:36 CR Exam(s): MRI HEAD Without Contrast EXAM: MR Head Without Intravenous Contrast CLINICAL HISTORY: Age indeterminate CVA on head CT. TECHNIQUE: Magnetic resonance images of the head/brain without intravenous contrast in multiple planes. COMPARISON: CT Brain 11-16-2024. FINDINGS: Brain: Age-appropriate central and peripheral atrophy. 6 x 8 mm acute nonhemorrhagic left thalamic lacunar infarct without mass effect. Mild degree of supratentorial periventricular and subcortical white matter hyperintensities on FLAIR and T2-weighted images. No acute hemorrhage or abnormal extra-axial fluid collection. Ventricles: No midline shift. No ventriculomegaly. Bones/joints: Unremarkable. No acute fracture. Sinuses: Unremarkable as visualized. No acute sinusitis. Mastoid air cells: Unremarkable as visualized. No mastoid effusion. Orbits: Unremarkable as visualized. IMPRESSION: 1. Acute nonhemorrhagic left thalamic lacunar infarct without mass effect 2. Nonspecific white matter changes most commonly seen with small vessel disease. Communications: Call Doctor Stroke Electronically signed by: Gokul Gray M.D. 11/16/24 22:18 PM
--- NOTE | 2024-11-17 12:14 | Hospitalist Progress Note ---
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 No recent changes to home antihypertensive regimen. SBP persistently in the 170s-220s over the past 2 weeks despite compliance with home antihypertensive regimen. Experiences coinciding dizziness, floaters in vision, unsteady gait, centralized chest pressure, SOB and lower lip tingling with this. In the ED around 15:30, patient's BP was 244/112. Patient was symptomatic with this. Described centralized chest pressure, SOB and lower lip tingling. Hypertensive emergency History as per above. No focal deficits appreciated on exam. ? acute vs subacute vs chronic left thalamic infarct as below. Troponin x 1 negative, will repeat. EKG personally reviewed: lots of artifact, possible ST depression in lateral leads. Repeat EKG with chest pain PRN. Case discussed between undersigned attending physician and ICU physician on- call, Dr. Martin. -Initial consideration was made for possible IV esmolol or nicardipine drip. -Holding off on initiation of antihypertensive drip for now. Advised to trial additional doses of Lopressor 50mg, losartan 50mg. Will continue Lopressor 50mg bid, losartan 50mg daily, amlodipine 5 mg daily Cardiology consulted Left thalamic infarction, lacunar infarct of the left thalamus Neurology consulted and discussed with - Breonna Oneal presents with an incidentally discovered small left thalamic stroke in the setting of hypertension. Hypertension likely secondary to the acute stroke though is an independent risk factor as this is a small vessel lacunar stroke. - CT angiography with contrast of the head and neck to evaluate cerebral vasculature. --> obtained and reviewed by neurology - CTA reviewed - Significant intracranial athero including in the occupational therapist's assistant which warrants DAPT for 90 days with aspirin and plavix, no load. Would also refer to neurosurgery for the noted aneurysms - specifically the R ICA terminus aneurysm. - Continue aspirin for secondary stroke prevention. - Initiate statin therapy to reduce LDL from 109 to <70. --> lipitor 40 started - Medicine team to optimize antihypertensive regimen. - Neurology follow-up in 4-6 weeks Current hemoglobin A1c 5.6%, lipid panel - LDL 109 Leukocytosis, resolved Suspect reactive elevation in setting of above. No clear signs or symptoms of infection. WBC now normalized DMII Hold metformin, SSI protocol while admitted. Follow BSG checks ACHS, A1c 5.6% Tobacco use disorder Smokes 1ppd, has been smoking since around age 11. Declined need for nicotine patch at this time. Cessation encouraged. Alcohol use Consumes approximately 4 glasses of wine/night x several years. No prior history of alcohol withdrawal or alcohol withdrawal seizures. AWSS protocol with PRN IV Ativan, monitor AWSS. Rheumatoid arthritis Chronic bilateral hand weakness which is unchanged from baseline. BUE strength 5/5 on exam. On prednisone 5mg daily (on this for over 3 years), can continue. Also on [employer] SEPARATION. Fibromyalgia Recently had epidural injections done this past Wednesday, reports done in mid back. Continue duloxetine. Hepatic steatosis LFTs appear to be around baseline, continue to monitor. GERD Continue PPI. DVT Prophylaxis: SCDs Code Status: FULL CODE PCP: Micaela Kelley MD Disposition: PCU Admission and Anticipated Discharge Date Admission Date: November 16, 2024 Subjective Pt seen in follow up, uncontrolled hypertension, also found to have an acute cva Pt seen ambulating in hallway w/ PT. Overall pt is feeling well. Denies any chest pain, or headache or change in vision. Denies any shortness of breath. No fevers, chills Reports ongoing pain issues, was seen recently at pain clinic. Also follows w/ for RA. BP still quite elevated but improved from admission Neurology consulted and discussed with - CTA head and neck ordered, cont. ASA + plavix, will need neurosurgery referral Cardiology consulted to help w/ uncontrolled BP Review of Systems Review of Systems: All systems reviewed & are unremarkable except as noted in Subjective Physical Exam Physical Exam: General: WD/WN, Elderly F in NAD, A&Ox3, conversing appropriately HEENT: Normocephalic, atraumatic, external ear and nose normal Respiratory: Normal respiratory effort, CTAB Cardiovascular: RRR, no BLE edema Abdomen/GI: Normal bowel sounds, soft, nontender to palpation in all quadrants Neurologic: awake, alert, no facial asymmetry, speech fluent, No focal deficits appreciated, extremity motor strength intact, actively moves all extremities Results & Data Results & Data Vital Signs (Past 12 Hours) Vital Signs Temp Pulse Pulse Resp BP BP BP 11/17/24 11:21 36.6 C 60 12 169/63 H 11/17/24 08:03 37.0 C 77 22 158/69 H 11/17/24 07:15 64 11/17/24 05:36 178/79 H 11/17/24 04:28 72 171/77 H 11/17/24 04:13 69 193/77 H 11/17/24 03:38 37.2 C 67 18 218/79 H 217/70 H Pulse Ox O2 Del Method 11/17/24 11:21 97 Room Air 11/17/24 08:03 97 Room Air 11/17/24 07:15 11/17/24 05:36 11/17/24 04:28 11/17/24 04:13 11/17/24 03:38 97 Room Air Laboratory Results 11/17/24 11/17/24 11/17/24 Range/Units 11:15 07:40 05:40 WBC 6.38 (4.8-10.8) K/ul RBC 3.92 L (4.20-5.40) M/uL Hgb 12.3 (12.0-16.0) g/dl Hct 36.8 L (37.0-47.0) % MCV 93.9 (80.0-100.0) fL MCH 31.4 (25.0-34.0) pg MCHC 33.4 (32.0-36.0) g/dL RDW Std Deviation 42.4 (36.4-46.3) fL RDW Coeff of Grey 12.3 (11.5-14.5) % Plt Count 178 (130-400) K/uL MPV 10.2 (9.4-12.4) fL Immature Gran % (Auto) % Neut % (Auto) % Lymph % (Auto) % Bland % (Auto) % Eos % (Auto) % Baso % (Auto) % Neut # (Auto) (1.40-6.50) K/uL Lymph # (Auto) (1.20-3.40) K/uL Bland # (Auto) (0.11-0.59) K/uL Eos # (Auto) (0.00-0.50) K/uL Baso # (Auto) (0.00-0.20) K/uL Immature Gran # (Auto) (0.01-0.20) K/uL Sodium 137 (136-145) mmol/L Potassium 3.6 (3.5-5.1) mmol/L Chloride 103 (98-107) mmol/L Carbon Dioxide 25 (21-32) mmol/L Anion Gap 9 (3-11) BUN 18 (6-23) mg/dl Creatinine 0.66 (0.6-1.2) mg/dl Est Cr Clr Drug Dosing 66.1 ml/min eGFR 93.73 BUN/Creatinine Ratio 27.3 H (10-20) Glucose 113 H (70-99(Fasting)) mg/dl POC Glucose 93 122 H (70-99) mg/dl Estimat Average Glucose 114 mg/dl Hemoglobin A1c 5.6 (4.5-5.6) % Calcium 9.2 (8.6-10.3) mg/dl Magnesium 1.6 L (1.7-2.4) mg/dl Total Bilirubin 0.5 (0.2-1.0) mg/dl AST 34 (13-39) U/L ALT 32 (7-52) U/L Alkaline Phosphatase 102 (34-104) U/L Troponin I High Sens (0-14) pg/ml Total Protein 7.0 (6.0-8.3) gm/dl Albumin 3.8 (3.4-5.0) gm/dl Globulin 3.2 (2.5-4.0) gm/dl Albumin/Globulin Ratio 1.2 (0.9-2) Triglycerides 121 (0-150) mg/dl Cholesterol 178 (0-200) mg/dl LDL Cholesterol, Calc 109 mg/dl VLDL Cholesterol, Calc 24 (0-30) mg/dl HDL Cholesterol 45 mg/dl Cholesterol/HDL Ratio 4.0 (0-5) TSH 0.598 (0.300-4.500) uIu/ml Urine Color Urine Appearance (Clear) Urine pH (4.5-7.5) Ur Specific [place] (1.000-1.030) Urine Protein (Negative) Urine Glucose (UA) (Negative) Urine Ketones (Negative) Urine Blood (Negative) Urine Nitrite (Negative) Urine Bilirubin (Negative) Urine Urobilinogen (Negative) Ur Leukocyte Esterase (Negative) Urine WBC (Auto) (0-5) /hpf Urine RBC (Auto) (0-2) /hpf U Hyaline Cast (Auto) (0-2) /lpf U Epithel Cells (Auto) (0-2) /hpf Urine Bacteria (Auto) (None Seen) Urine Comment Adenovirus (PCR) (NotDetected) B. pertussis DNA (PCR) (NotDetected) B.parapertussis DNA PCR (NotDetected) C. pneumoniae DNA (PCR) (NotDetected) Coronavirus OC43 (PCR) (NotDetected) Coronavirus HKU1 (PCR) (NotDetected) Coronavirus 229E (PCR) (NotDetected) SARS-CoV-2 (PCR) (NotDetected) Coronavirus NL63 (PCR) (NotDetected) Human Metapneumovir PCR (NotDetected) Influenza Type A (PCR) (NotDetected) Influenza Type B (PCR) (NotDetected) M. pneumoniae (PCR) (NotDetected) Parainfluenza 1 (PCR) (NotDetected) Parainfluenza 2 (PCR) (NotDetected) Parainfluenza 3 (PCR) (NotDetected) Parainfluenza 4 (PCR) (NotDetected) RSV (PCR) (NotDetected) Entero/Rhino (PCR) (NotDetected) 11/16/24 11/16/24 11/16/24 Range/Units Unknown 20:06 18:02 WBC (4.8-10.8) K/ul RBC (4.20-5.40) M/uL Hgb (12.0-16.0) g/dl Hct (37.0-47.0) % MCV (80.0-100.0) fL MCH (25.0-34.0) pg MCHC (32.0-36.0) g/dL RDW Std Deviation (36.4-46.3) fL RDW Coeff of Grey (11.5-14.5) % Plt Count (130-400) K/uL MPV (9.4-12.4) fL Immature Gran % (Auto) % Neut % (Auto) % Lymph % (Auto) % Bland % (Auto) % Eos % (Auto) % Baso % (Auto) % Neut # (Auto) (1.40-6.50) K/uL Lymph # (Auto) (1.20-3.40) K/uL Bland # (Auto) (0.11-0.59) K/uL Eos # (Auto) (0.00-0.50) K/uL Baso # (Auto) (0.00-0.20) K/uL Immature Gran # (Auto) (0.01-0.20) K/uL Sodium (136-145) mmol/L Potassium (3.5-5.1) mmol/L Chloride (98-107) mmol/L Carbon Dioxide (21-32) mmol/L Anion Gap (3-11) BUN (6-23) mg/dl Creatinine (0.6-1.2) mg/dl Est Cr Clr Drug Dosing ml/min eGFR BUN/Creatinine Ratio (10-20) Glucose (70-99(Fasting)) mg/dl POC Glucose 97 99 (70-99) mg/dl Estimat Average Glucose mg/dl Hemoglobin A1c (4.5-5.6) % Calcium (8.6-10.3) mg/dl Magnesium (1.7-2.4) mg/dl Total Bilirubin (0.2-1.0) mg/dl AST (13-39) U/L ALT (7-52) U/L Alkaline Phosphatase (34-104) U/L Troponin I High Sens (0-14) pg/ml Total Protein (6.0-8.3) gm/dl Albumin (3.4-5.0) gm/dl Globulin (2.5-4.0) gm/dl Albumin/Globulin Ratio (0.9-2) Triglycerides (0-150) mg/dl Cholesterol (0-200) mg/dl LDL Cholesterol, Calc mg/dl VLDL Cholesterol, Calc (0-30) mg/dl HDL Cholesterol mg/dl Cholesterol/HDL Ratio (0-5) TSH (0.300-4.500) uIu/ml Urine Color Yellow Urine Appearance Clear (Clear) Urine pH 7.0 (4.5-7.5) Ur Specific [place] 1.013 (1.000-1.030) Urine Protein Trace H (Negative) Urine Glucose (UA) Negative (Negative) Urine Ketones Negative (Negative) Urine Blood Negative (Negative) Urine Nitrite Negative (Negative) Urine Bilirubin Negative (Negative) Urine Urobilinogen Negative (Negative) Ur Leukocyte Esterase Negative (Negative) Urine WBC (Auto) 0-5 (0-5) /hpf Urine RBC (Auto) 0-2 (0-2) /hpf U Hyaline Cast (Auto) 0-2 (0-2) /lpf U Epithel Cells (Auto) 0-2 (0-2) /hpf Urine Bacteria (Auto) None Seen (None Seen) Urine Comment Adenovirus (PCR) Not Detected (NotDetected) B. pertussis DNA (PCR) Not Detected (NotDetected) B.parapertussis DNA PCR Not Detected (NotDetected) C. pneumoniae DNA (PCR) Not Detected (NotDetected) Coronavirus OC43 (PCR) Not Detected (NotDetected) Coronavirus HKU1 (PCR) Not Detected (NotDetected) Coronavirus 229E (PCR) Not Detected (NotDetected) SARS-CoV-2 (PCR) Not Detected (NotDetected) Coronavirus NL63 (PCR) Not Detected (NotDetected) Human Metapneumovir PCR Not Detected (NotDetected) Influenza Type A (PCR) Not Detected (NotDetected) Influenza Type B (PCR) Not Detected (NotDetected) M. pneumoniae (PCR) Not Detected (NotDetected) Parainfluenza 1 (PCR) Not Detected (NotDetected) Parainfluenza 2 (PCR) Not Detected (NotDetected) Parainfluenza 3 (PCR) Not Detected (NotDetected) Parainfluenza 4 (PCR) Not Detected (NotDetected) RSV (PCR) Not Detected (NotDetected) Entero/Rhino (PCR) Not Detected (NotDetected) 11/16/24 11/16/24 Range/Units 16:59 12:01 WBC 13.02 H (4.8-10.8) K/ul RBC 4.08 L (4.20-5.40) M/uL Hgb 12.8 (12.0-16.0) g/dl Hct 38.1 (37.0-47.0) % MCV 93.4 (80.0-100.0) fL MCH 31.4 (25.0-34.0) pg MCHC 33.6 (32.0-36.0) g/dL RDW Std Deviation 42.5 (36.4-46.3) fL RDW Coeff of Grey 12.4 (11.5-14.5) % Plt Count 227 (130-400) K/uL MPV 10.2 (9.4-12.4) fL Immature Gran % (Auto) 0.3 % Neut % (Auto) 79.0 % Lymph % (Auto) 10.4 % Bland % (Auto) 10.0 % Eos % (Auto) 0.1 % Baso % (Auto) 0.2 % Neut # (Auto) 10.28 H (1.40-6.50) K/uL Lymph # (Auto) 1.36 (1.20-3.40) K/uL Bland # (Auto) 1.30 H (0.11-0.59) K/uL Eos # (Auto) 0.01 (0.00-0.50) K/uL Baso # (Auto) 0.03 (0.00-0.20) K/uL Immature Gran # (Auto) 0.04 (0.01-0.20) K/uL Sodium 136 (136-145) mmol/L Potassium 4.0 (3.5-5.1) mmol/L Chloride 102 (98-107) mmol/L Carbon Dioxide 26 (21-32) mmol/L Anion Gap 8 (3-11) BUN 23 (6-23) mg/dl Creatinine 0.86 (0.6-1.2) mg/dl Est Cr Clr Drug Dosing 51.0 ml/min eGFR 72.18 BUN/Creatinine Ratio 26.7 H (10-20) Glucose 109 H (70-99(Fasting)) mg/dl POC Glucose (70-99) mg/dl Estimat Average Glucose mg/dl Hemoglobin A1c (4.5-5.6) % Calcium 9.3 (8.6-10.3) mg/dl Magnesium (1.7-2.4) mg/dl Total Bilirubin 0.4 (0.2-1.0) mg/dl AST 43 H (13-39) U/L ALT 40 (7-52) U/L Alkaline Phosphatase 117 H (34-104) U/L Troponin I High Sens 12.6 13.4 (0-14) pg/ml Total Protein 7.3 (6.0-8.3) gm/dl Albumin 3.7 (3.4-5.0) gm/dl Globulin 3.6 (2.5-4.0) gm/dl Albumin/Globulin Ratio 1.0 (0.9-2) Triglycerides (0-150) mg/dl Cholesterol (0-200) mg/dl LDL Cholesterol, Calc mg/dl VLDL Cholesterol, Calc (0-30) mg/dl HDL Cholesterol mg/dl Cholesterol/HDL Ratio (0-5) TSH (0.300-4.500) uIu/ml Urine Color Urine Appearance (Clear) Urine pH (4.5-7.5) Ur Specific [place] (1.000-1.030) Urine Protein (Negative) Urine Glucose (UA) (Negative) Urine Ketones (Negative) Urine Blood (Negative) Urine Nitrite (Negative) Urine Bilirubin (Negative) Urine Urobilinogen (Negative) Ur Leukocyte Esterase (Negative) Urine WBC (Auto) (0-5) /hpf Urine RBC (Auto) (0-2) /hpf U Hyaline Cast (Auto) (0-2) /lpf U Epithel Cells (Auto) (0-2) /hpf Urine Bacteria (Auto) (None Seen) Urine Comment Adenovirus (PCR) (NotDetected) B. pertussis DNA (PCR) (NotDetected) B.parapertussis DNA PCR (NotDetected) C. pneumoniae DNA (PCR) (NotDetected) Coronavirus OC43 (PCR) (NotDetected) Coronavirus HKU1 (PCR) (NotDetected) Coronavirus 229E (PCR) (NotDetected) SARS-CoV-2 (PCR) (NotDetected) Coronavirus NL63 (PCR) (NotDetected) Human Metapneumovir PCR (NotDetected) Influenza Type A (PCR) (NotDetected) Influenza Type B (PCR) (NotDetected) M. pneumoniae (PCR) (NotDetected) Parainfluenza 1 (PCR) (NotDetected) Parainfluenza 2 (PCR) (NotDetected) Parainfluenza 3 (PCR) (NotDetected) Parainfluenza 4 (PCR) (NotDetected) RSV (PCR) (NotDetected) Entero/Rhino (PCR) (NotDetected) Medications Administered Current Inpatient Medications Acetaminophen (Acetaminophen 325 Mg Tab) 650 mg PO Q4H PRN PRN Reason: Pain or Fever Stop: 12/16/24 17:35 Amlodipine Besylate (Amlodipine Besylate 5 Mg Tab) 5 mg PO QAM WEN Stop: 12/16/24 18:14 Last Admin: 11/17/24 08:17 Dose: 5 mg Dextrose (Dextrose 50% 50 Ml Syringe) 25 - 50 ml IV UD PRN; Protocol PRN Reason: Hypoglycemia Protocol Stop: 12/16/24 17:35 Duloxetine HCl (Duloxetine Hcl 60 Mg Cap) 60 mg PO DAILY WEN Stop: 12/17/24 08:59 Last Admin: 11/17/24 08:19 Dose: 60 mg Folic Acid (Folic Acid 1 Mg Tab) 1 mg PO QAM WEN Stop: 12/17/24 08:59 Last Admin: 11/17/24 08:19 Dose: 1 mg Glucagon (Glucagon For Inj 1 Mg Vial) 1 mg SQ UD PRN; Protocol PRN Reason: Hypoglycemia Protocol Stop: 12/16/24 17:35 Glucose (Glucose 40% Gel 15 Gm Tube) 15 - 30 gm PO UD PRN; Protocol PRN Reason: Hypoglycemia Protocol Stop: 12/16/24 17:35 Glucose (Glucose 10 Tab/Tube) 4 - 8 tab PO UD PRN; Protocol PRN Reason: Hypoglycemia Protocol Stop: 12/16/24 17:35 Lorazepam 1 mg/ Syringe 1 mls @ 2 mls/min IV ONE PRN; Protocol PRN Reason: EtoH Withdrawal AWSS 6-10 Insulin Aspart (Insulin Aspart Per Unit Charge) 0 units SC ACHS WEN Stop: 12/16/24 17:35 Last Admin: 11/17/24 11:28 Dose: Not Given Labetalol HCl (Labetalol Hcl Iv 5 Mg/Ml 20ml) 10 mg IV Q4H PRN PRN Reason: Hypertension Stop: 12/16/24 22:22 Last Admin: 11/17/24 04:13 Dose: 10 mg Losartan Potassium (Losartan Potassium 50 Mg Tab) 50 mg PO DAILY [facility] Stop: 12/17/24 08:59 Last Admin: 11/17/24 08:17 Dose: 50 mg Magnesium Hydroxide (Magnesium Hydroxide Susp 30 Ml Udc) 30 ml PO Q12H PRN PRN Reason: Constipation Stop: 12/16/24 17:35 Metoprolol Tartrate (Metoprolol Tartrate 50 Mg Tab) 50 mg PO BID [facility] Stop: 12/17/24 08:59 Last Admin: 11/17/24 08:17 Dose: 50 mg Miscellaneous (Carbohydrates For Hypoglycemia ) 15 - 30 gm PO UD PRN PRN Reason: Hypoglycemia Protocol Stop: 12/16/24 17:35 Miscellaneous Information (Pharmacist Discharge Med Rec Consult) 1 each N/A UD PRN PRN Reason: Consult Stop: 12/16/24 17:35 Miscellaneous Information (Pharmacy Glycemic Mgmt Consult) 1 each N/A UD PRN PRN Reason: Consult Stop: 12/16/24 17:35 [facility]ivit[facility] ([facility]amin Tab) [facility] Stop: 12/17/24 08:59 Last Admin: 11/17/24 08:19 Dose: 1 tab Ondansetron HCl (Ondansetron Inj 2 Mg/Ml 2 Ml Vial) 4 mg IV Q6H PRN PRN Reason: Nausea Stop: 12/16/24 17:35 Pantoprazole Sodium (Pantoprazole 40 Mg Tab) 40 mg PO QDL [facility] Stop: 12/17/24 11:29 Last Admin: 11/17/24 11:30 Dose: 40 mg Polyethylene Glycol (Polyethylene (Miralax) 17 Gm Pack) 17 gm PO DAILY PRN PRN Reason: Constipation Stop: 12/16/24 17:35 Prednisone (Prednisone 5 Mg Tab) 5 mg PO QDL [facility] [place] Stop: 12/17/24 11:29 Last Admin: 11/17/24 11:30 Dose: 5 mg Thiamine HCl (Thiamine Hcl 100 Mg Tab) 100 mg PO QAM [facility] Stop: 12/17/24 08:59 Last Admin: 11/17/24 08:18 Dose: 100 mg
--- NOTE | 2024-11-17 12:30 | Pharmacy Report ---
Pharmacy Glycemic Short Note 2 - Date of Service November 17, 2024 - Glycemic Short BSG Results (Last 24 hours): 11/16/24 11/16/24 11/16/24 12:01 18:02 20:06 Glucose 109 H POC Glucose 99 97 11/17/24 11/17/24 11/17/24 05:40 07:40 11:15 Glucose 113 H POC Glucose 122 H 93 OUTPATIENT ANTIDIABETIC REGIMEN: * Metformin 500mg QDL * HbA1c: 5.6% (11/17/2024) ASSESSMENT: 11/17: * Patient's BSG values have been on the lower side ranging 93-122 * Received 5 units at breakfast and decreased from 122 to 93 with 50g of carb intake * Will loosen sliding scale parameters to CF of 45 and CR of 25 and loosened BSG goal range a bit * A1c pretty low - likely won't need too much insulin to keep glucose controlled * T2DM diet, prednisone 5mg daily continued 11/16: * Patient admitted with hypertensive urgency, not hyperglycemic since admission. * Will initiated a moderate stress NovoLog scale to start. * Patient is ordered a diet and continued on home prednisone 5mg daily. PLAN FOR INPATIENT GLYCEMIC CONTROL: * Hold outpatient oral diabetes medications * Basal insulin * None * Bolus insulin * NovoLog per scale ACHS or Q6hrs while NPO * Goal Range: Low 120 mg/dL - High 160 mg/dL * Correction Factor: 45 mg/dL/unit * Nutritional / Prandial insulin per carb ratio of 1 unit per 25 grams CHO consumed
[2024-11-17] MEDS: OPTIRAY 320 125ml IV ONE (13:16)
[2024-11-17] MEDS: ATORVASTATIN 40 MG TAB PO SCH (13:30)
--- NOTE | 2024-11-17 13:37 | CT Scan Report ---
CT ANGIOGRAPHY OF THE NECK WITH CONTRAST CLINICAL HISTORY: Cerebrovascular accident. COMPARISON STUDY: No previous studies for comparison. Technique: CT angiography of the carotid and vertebral arteries was obtained using Optiray and 3D rec onstruction on an independent workstation. NASCET criteria was utilized. Automated exposure control was utilized for the study. A dose lowering technique was utilized adhering to the principles of ALA RA. CT DOSE: 439.74 mGy.cm Findings: Visualized lung apices are unremarkable. There is no cervical lymphadenopathy. There are no cervical spine fractures. There is mild plaque within the proximal right internal carotid artery wit hout stenosis. There is moderate calcified plaque at the left carotid bifurcation. This results in 40 % stenosis of the proximal left internal carotid artery. The vessel measures 2.3 mm at site of narrow ing and 4 mm distally. Mild irregularity of the distal cervical internal carotid arteries is likely d ue to atherosclerosis. There is no aneurysm or dissection within the neck. The left vertebral artery is dominant. The CTA of the head will be reported separately. IMPRESSION: 1. 40% stenosis within the proximal left internal carotid artery due to calcified atherosclerotic rocío que. 2. No aneurysm or dissection within the neck. ACT 112: Negative or not required by law. Electronically signed by: Anders Ma M.D. 11/17/2024 1:36 PM
--- NOTE | 2024-11-17 13:46 | CT Scan Report ---
CT angio head w con CLINICAL HISTORY: 69 years-old Female with cva. Acute stroke like symptoms COMPARISON STUDY: Head CT 11/16/2024, brain MR 11/16/2024. TECHNIQUE: Following the IV administration of 120 cc of Optiray, CT angiogram of the brain was perfor med from the skull base to the vertex. Images are reviewed in the axial, sagittal, and coronal planes . 3-D MIPS images are created and assessed. IV contrast was administered without complication. All me asurements were obtained according to NASCET criteria. A dose lowering technique was utilized adherin g to the principles of ALARA. FINDINGS: CT ANGIOGRAM OF THE BRAIN: The imaged bilateral internal carotid arteries are patent. Peripherally calcified 6 x 3 x 4 mm saccul ar aneurysm is noted involving the supraclinoid segment of the left ICA on image 117 series 3 without rupture. 3 mm saccular aneurysm of the right carotid terminus. Mild multifocal stenoses of the middl e cerebral arteries. There is a short segment high-grade stenosis involving M2 branch of the right mi ddle cerebral artery on image 118 series 3. Short segment intermediate grade stenosis of the left MCA on image 124. The anterior cerebral arteries are widely patent. Vertebral venous sinuses are patent. The vertebral and basilar arteries are patent. Multifocal moderate to high-grade stenoses within the bilateral posterior cerebral arteries. No definite arterial occlusion identified. The acute left thalamic lacunar infarct is better seen on yesterday's MRI. Involutional changes with chronic microvascular ischemic disease. IMPRESSION: 1. Acute left thalamic lacunar infarct better seen on yesterday's MRI. 2. Multifocal intermediate to high-grade stenoses of the posterior cerebral arteries. 3. 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 ACT 112: Negative or not required by law. The above report was generated using voice recognition software. It may contain grammatical, syntax o r spelling errors. Electronically signed by: Jose Manuel Will M.D. 11/17/2024 1:44 PM
--- NOTE | 2024-11-17 14:38 | Pharmacy Report ---
- Date of Service November 17, 2024 - Pharmacy CVA/TIA Medication Review Medications to Prevent Stroke handout has been added to the patients discharge packet. Antiplatelet(s) * Aspirin 81 mg PO daily Cholesterol * High intensity statin: atorvastatin 40 mg daily DVT Prophylaxis * SCD knee Therapeutic Anticoagulation * No history of Afib/Aflutter noted Type 2 Diabetes * Patient has T2DM, but a diabetes medication with proven CVD benefit will be deferred to their outpatient provider due to familiarity with risks/benefits of such therapies. "Medications to prevent stroke" handout has already been added to the patient's discharge packet, which instructs the patient to follow up with their outpatient provider to evaluate which diabetes medication with proven CVD benefit is best for them
--- NOTE | 2024-11-17 14:50 | Communication Note ---
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 Would also refer to neurosurgery for the noted aneurysms - specifically the R ICA terminus aneurysm.
[2024-11-17] MEDS: ASPIRIN 81 MG ECTAB PO SCH (15:38)
[2024-11-17] MEDS: INFLUENZA VACC TS2025-26(65y+)/PF (IIV3) 0.5mL Syr IM ONE (15:39)
[2024-11-17] MEDS: PNEUMOCOCCAL VACCINE (PCV20) 20-VAL CONJ-DIP CRM/PF 0.5 ML SYR IM ONE (15:40)
[2024-11-17] MEDS: CLOPIDOGREL BISULFATE 75 MG TAB PO SCH (17:42)
[2024-11-18 06:22] LABS: Hematocrit (blood only) 35.7 % (37.0-47.0); Hemoglobin 12.6 g/dl (12.0-16.0); Mean Corpuscular Hemoglobin 32.6 pg (25.0-34.0); Mean Corpuscular Volume 92.5 fL (80.0-100.0); Platelet Count 205 K/uL (130-400); RDW Standard Deviation 40.6 fL (36.4-46.3); Red Blood Count 3.86 M/uL (4.20-5.40); White Blood Count 8.12 K/ul (4.8-10.8)
[2024-11-18 06:58] LABS: Anion Gap 8.0 (3-11); Blood Urea Nitrogen 20.0 mg/dl (6-23); Calcium 9.1 mg/dl (8.6-10.3); Carbon Dioxide 23.0 mmol/L (21-32); Chloride 104.0 mmol/L (98-107); Creatinine Clr Calc Pharmacy 61.9 ml/min; Glucose 109.0 mg/dl (70-99(Fasting)); Magnesium 1.9 mg/dl (1.7-2.4); Potassium 3.9 mmol/L (3.5-5.1); Sodium 135.0 mmol/L (136-145)
--- NOTE | 2024-11-18 10:37 | Hospitalist Progress Note ---
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 No recent changes to home antihypertensive regimen. SBP persistently in the 170s-220s over the past 2 weeks despite compliance with home antihypertensive regimen. Experiences coinciding dizziness, floaters in vision, unsteady gait, centralized chest pressure, SOB and lower lip tingling with this. In the ED around 15:30, patient's BP was 244/112. Patient was symptomatic with this. Described centralized chest pressure, SOB and lower lip tingling. Hypertensive emergency History as per above. No focal deficits appreciated on exam. ? acute vs subacute vs chronic left thalamic infarct as below. Troponin x 1 negative, will repeat. EKG personally reviewed: lots of artifact, possible ST depression in lateral leads. Repeat EKG with chest pain PRN. Case discussed between undersigned attending physician and ICU physician on- call, Dr. Martin. -Initial consideration was made for possible IV esmolol or nicardipine drip. -Holding off on initiation of antihypertensive drip for now. Advised to trial additional doses of Lopressor 50mg, losartan 50mg. Will continue Lopressor 50mg bid, losartan 50mg daily, amlodipine 5 mg daily Cardiology consulted 10/11 BP elevated yesterday throughout the day. This AM BP 160/65. Cont. to closely monitor Left thalamic infarction, lacunar infarct of the left thalamus Neurology consulted and discussed with - Breonna Oneal presents with an incidentally discovered small left thalamic stroke in the setting of hypertension. Hypertension likely secondary to the acute stroke though is an independent risk factor as this is a small vessel lacunar stroke. - CT angiography with contrast of the head and neck to evaluate cerebral vasculature. --> obtained and reviewed by neurology - CTA reviewed - Significant intracranial athero including in the spinner box which warrants DAPT for 90 days with aspirin and plavix, no load. Would also refer to neurosurgery for the noted aneurysms - specifically the R ICA terminus aneurysm. - Continue aspirin for secondary stroke prevention. - Initiate statin therapy to reduce LDL from 109 to <70. --> lipitor 40 started - Medicine team to optimize antihypertensive regimen. - Neurology follow-up in 4-6 weeks Current hemoglobin A1c 5.6%, lipid panel - LDL 109 Leukocytosis, resolved Suspect reactive elevation in setting of above. No clear signs or symptoms of infection. WBC now normalized DMII Hold metformin, SSI protocol while admitted. Follow BSG checks ACHS, A1c 5.6% Tobacco use disorder Smokes 1ppd, has been smoking since around age 11. Declined need for nicotine patch at this time. Cessation encouraged. Alcohol use Consumes approximately 4 glasses of wine/night x several years. No prior history of alcohol withdrawal or alcohol withdrawal seizures. AWSS protocol with PRN IV Ativan, monitor AWSS. Rheumatoid arthritis Chronic bilateral hand weakness which is unchanged from baseline. BUE strength 5/5 on exam. On prednisone 5mg daily (on this for over 3 years), can continue. Also on Orencia RECHARGER. Fibromyalgia Recently had epidural injections done this past Wednesday, reports done in mid back. Continue duloxetine. Hepatic steatosis LFTs appear to be around baseline, continue to monitor. GERD Continue PPI. DVT Prophylaxis: SCDs Code Status: FULL CODE PCP: Micaela Kelley MD Disposition: PCU Admission and Anticipated Discharge Date Admission Date: November 17, 2024 Subjective Pt seen in follow up, uncontrolled hypertension, also found to have an acute cva Pt seen ambulating in hallway w/ PT yesterday. Overall pt is feeling well. Denies any chest pain, or headache or change in vision. Denies any shortness of breath. No fevers, chills Reports ongoing pain issues, was seen recently at pain clinic. Also follows w/ for RA. BP still quite elevated but improved from admission Neurology consulted and discussed with yesterday - CTA head and neck obtained, cont. ASA + plavix, will need neurosurgery referral - pt and her aware (pt's updated over the phone yesterday) Cardiology consulted to help w/ uncontrolled BP Review of Systems Review of Systems: All systems reviewed & are unremarkable except as noted in Subjective Physical Exam Physical Exam: General: WD/WN, Elderly F in NAD, A&Ox3, conversing appropriately HEENT: Normocephalic, atraumatic, external ear and nose normal Respiratory: Normal respiratory effort, CTAB Cardiovascular: RRR, no BLE edema Abdomen/GI: Normal bowel sounds, soft, nontender to palpation in all quadrants Neurologic: awake, alert, no facial asymmetry, speech fluent, No focal deficits appreciated, extremity motor strength intact, actively moves all extremities Results & Data Results & Data Vital Signs (Past 12 Hours) Vital Signs Temp Pulse Pulse Resp BP BP BP 11/18/24 08:26 36.7 C 73 18 160/65 H 11/18/24 07:44 11/18/24 07:44 62 11/18/24 04:00 36.9 C 70 20 170/66 H 11/18/24 00:00 11/17/24 23:47 67 169/72 H 11/17/24 23:47 169/72 H 11/17/24 23:26 36.7 C 67 20 222/88 H 204/80 H 11/17/24 23:20 70 Pulse Ox Pulse Ox O2 Del Method O2 Del Method 11/18/24 08:26 98 Room Air 11/18/24 07:44 Room Air 11/18/24 07:44 11/18/24 04:00 96 Room Air 11/18/24 00:00 96 Room Air 11/17/24 23:47 11/17/24 23:47 11/17/24 23:26 97 Room Air 11/17/24 23:20 Laboratory Results 11/18/24 11/18/24 11/17/24 Range/Units 07:35 05:55 20:21 WBC 8.12 (4.8-10.8) K/ul RBC 3.86 L (4.20-5.40) M/uL Hgb 12.6 (12.0-16.0) g/dl Hct 35.7 L (37.0-47.0) % MCV 92.5 (80.0-100.0) fL MCH 32.6 (25.0-34.0) pg MCHC 35.3 (32.0-36.0) g/dL RDW Std Deviation 40.6 (36.4-46.3) fL RDW Coeff of Grey 11.9 (11.5-14.5) % Plt Count 205 (130-400) K/uL MPV 10.1 (9.4-12.4) fL Sodium 135 L (136-145) mmol/L Potassium 3.9 (3.5-5.1) mmol/L Chloride 104 (98-107) mmol/L Carbon Dioxide 23 (21-32) mmol/L Anion Gap 8 (3-11) BUN 20 (6-23) mg/dl Creatinine 0.70 (0.6-1.2) mg/dl Est Cr Clr Drug Dosing 61.9 ml/min eGFR 92.41 BUN/Creatinine Ratio 28.6 H (10-20) Glucose 109 H (70-99(Fasting)) mg/dl POC Glucose 106 H 130 H (70-99) mg/dl Calcium 9.1 (8.6-10.3) mg/dl Phosphorus 3.8 (2.5-4.9) mg/dl Magnesium 1.9 (1.7-2.4) mg/dl 11/17/24 11/17/24 Range/Units 16:04 11:15 WBC (4.8-10.8) K/ul RBC (4.20-5.40) M/uL Hgb (12.0-16.0) g/dl Hct (37.0-47.0) % MCV (80.0-100.0) fL MCH (25.0-34.0) pg MCHC (32.0-36.0) g/dL RDW Std Deviation (36.4-46.3) fL RDW Coeff of Grey (11.5-14.5) % Plt Count (130-400) K/uL MPV (9.4-12.4) fL Sodium (136-145) mmol/L Potassium (3.5-5.1) mmol/L Chloride (98-107) mmol/L Carbon Dioxide (21-32) mmol/L Anion Gap (3-11) BUN (6-23) mg/dl Creatinine (0.6-1.2) mg/dl Est Cr Clr Drug Dosing ml/min eGFR BUN/Creatinine Ratio (10-20) Glucose (70-99(Fasting)) mg/dl POC Glucose 132 H 93 (70-99) mg/dl Calcium (8.6-10.3) mg/dl Phosphorus (2.5-4.9) mg/dl Magnesium (1.7-2.4) mg/dl Medications Administered Current Inpatient Medications Acetaminophen (Acetaminophen 325 Mg Tab) 650 mg PO Q4H PRN PRN Reason: Pain or Fever Stop: 12/16/24 17:35 Amlodipine Besylate (Amlodipine Besylate 5 Mg Tab) 5 mg PO QAM [facility] Stop: 12/16/24 18:14 Last Admin: 11/18/24 08:55 Dose: 5 mg Aspirin (Aspirin 81 Mg Ectab) 81 mg PO DAILY [facility] Stop: 12/17/24 14:44 Last Admin: 11/18/24 08:57 Dose: 81 mg Atorvastatin Calcium (Atorvastatin 40 Mg Tab) [facility] [place] Stop: 12/17/24 12:14 Last Admin: 11/18/24 08:57 Dose: 40 mg Clopidogrel Bisulfate (Clopidogrel Bisulfate 75 Mg Tab) 75 mg PO [facility] Stop: 12/17/24 16:59 Last Admin: 11/18/24 08:57 Dose: 75 mg Dextrose (Dextrose 50% 50 Ml Syringe) 25 - 50 ml IV UD PRN; Protocol PRN Reason: Hypoglycemia Protocol Stop: 12/16/24 17:35 Duloxetine HCl (Duloxetine Hcl 60 Mg Cap) 60 mg PO DAILY [facility] Stop: 12/17/24 08:59 Last Admin: 11/18/24 08:55 Dose: 60 mg Folic Acid (Folic Acid 1 Mg Tab) [facility] [place] Stop: 12/17/24 08:59 Last Admin: 11/18/24 08:56 Dose: 1 mg Glucagon (Glucagon For Inj 1 Mg Vial) 1 mg SQ UD PRN; Protocol PRN Reason: Hypoglycemia Protocol Stop: 12/16/24 17:35 Glucose (Glucose 40% Gel 15 Gm Tube) 15 - 30 gm PO UD PRN; Protocol PRN Reason: Hypoglycemia Protocol Stop: 12/16/24 17:35 Glucose (Glucose 10 Tab/Tube) 4 - 8 tab PO UD PRN; Protocol PRN Reason: Hypoglycemia Protocol Stop: 12/16/24 17:35 Lorazepam 1 mg/ Syringe 1 mls @ 2 mls/min IV ONE PRN; Protocol PRN Reason: EtoH Withdrawal AWSS 6-10 Insulin Aspart (Insulin Aspart Per Unit Charge) 0 units SC ACHS [facility] Stop: 12/16/24 17:35 Last Admin: 11/18/24 08:00 Dose: Not Given Labetalol HCl (Labetalol Hcl Iv 5 Mg/Ml 20ml) 10 mg IV Q4H PRN PRN Reason: Hypertension Stop: 12/16/24 22:22 Last Admin: 11/17/24 23:32 Dose: 10 mg Losartan Potassium (Losartan Potassium 50 Mg Tab) 50 mg PO DAILY [facility] Stop: 12/17/24 08:59 Last Admin: 11/18/24 08:56 Dose: 50 mg Magnesium Hydroxide (Magnesium Hydroxide Susp 30 Ml Udc) 30 ml PO Q12H PRN PRN Reason: Constipation Stop: 12/16/24 17:35 Metoprolol Tartrate (Metoprolol Tartrate 50 Mg Tab) 50 mg PO BID [facility] Stop: 12/17/24 08:59 Last Admin: 11/18/24 08:56 Dose: 50 mg Miscellaneous (Carbohydrates For Hypoglycemia ) 15 - 30 gm PO UD PRN PRN Reason: Hypoglycemia Protocol Stop: 12/16/24 17:35 Miscellaneous Information (Pharmacist Discharge Med Rec Consult) 1 each N/A UD PRN PRN Reason: Consult Stop: 12/16/24 17:35 Miscellaneous Information (Pharmacy Glycemic Mgmt Consult) 1 each N/A UD PRN PRN Reason: Consult Stop: 12/16/24 17:35 Multivitamins (Multivitamin Tab) 1 tab PO QAM [facility] Stop: 12/17/24 08:59 Last Admin: 11/18/24 08:56 Dose: 1 tab Ondansetron HCl (Ondansetron Inj 2 Mg/Ml 2 Ml Vial) 4 mg IV Q6H PRN PRN Reason: Nausea Stop: 12/16/24 17:35 Pantoprazole Sodium (Pantoprazole 40 Mg Tab) 40 mg PO QDL [facility] Stop: 12/17/24 11:29 Last Admin: 11/17/24 11:30 Dose: 40 mg Polyethylene Glycol (Polyethylene (Miralax) 17 Gm Pack) 17 gm PO DAILY PRN PRN Reason: Constipation Stop: 12/16/24 17:35 Prednisone (Prednisone 5 Mg Tab) 5 mg PO QDL [facility] Stop: 12/17/24 11:29 Last Admin: 11/17/24 11:30 Dose: 5 mg Thiamine HCl (Thiamine Hcl 100 Mg Tab) 100 mg PO QAM [facility] Stop: 12/17/24 08:59 Last Admin: 11/18/24 08:55 Dose: 100 mg
--- NOTE | 2024-11-18 14:26 | Pharmacy Report ---
Pharmacy Glycemic Sign Off Nt - Date of Service November 18, 2024 - Assessment & Plan ASSESSMENT: * Pharmacy was consulted by Lissette Watts on 11/16 for glycemic control and to write orders per [facility] inpatient glycemic control protocol. * Major changes made by pharmacy to antidiabetic regimen include: * added novolog scale * Patient has been receiving/requirin minimal insulin PLAN FOR INPATIENT GLYCEMIC CONTROL: No changes needed to current regimen. * No basal insulin warranted * Continue NovoLog per scale ACHS/Q6hrs while NPO * Goal range = 120-160 mg/dl * CF = 45 mg/dl/unit * CR = 1 unit for ever 12 g CHO consumed * Pharmacy is signing off of glycemic consult and will no longer be making adjustments to inpatient regimen. Please feel free to re-consult if needed. Thank you.
--- NOTE | 2024-11-18 14:58 | Cardiology Progress Note ---
Date of Service November 18, 2024 Assessment & Plan (1) Hypertensive emergency: (2) Left thalamic infarction: Plan Assessment: 69 year old female admitted for hypertensive emergency despite medication compliance. CT and confirmed MRI imaging show acute Left Thalamic infarction. Cardiology consulted for further assessment/recommendations. 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 bilaterally measuring up to 6 mm on the left without rupture DM Rheumatoid arthritis Fibromyalgia f/u with Neurology and Neurosurgery Echocardiogram with negative bubble study -as above adjust anti-HTN meds as per Neuro parameters for permissive HTN Use Losartan and Norvasc avoid using beta yusuf as first line anti-HTN med correct and f/u electrolytes Statin DM optimization - defer to hospitalist avoid hypovolemia keep patient euvolemic DVT prophylaxis Admission and Anticipated Discharge Date Admission Date: November 17, 2024 Subjective Patient on exam is lying in bed in NAD; no c/o cp, sob, palpitations, dizziness, LOC Review of Systems Review of Systems: as per hpi Physical Exam Constitutional: well developed and well nourished; no acute distress and not ill appearing Neck: normal visual inspection and trachea midline Respiratory: normal respiratory effort, lungs clear to auscultation no cough Auscultation: no crackles, no rales, no rhonchi and no wheezes Cardiovascular: Rate/Rhythm: regular rate and regular rhythm Heart Sounds: normal S1 and normal S2; no murmur Vessels: dorsalis pedis pulses present; no JVD Extremities: no edema Skin: no rashes, warm and dry Psychiatric: A+Ox3, euthymic affect Results & Data Vital Signs (Past 12 Hours) Vital Signs Temp Pulse Pulse Resp BP Pulse Ox O2 Del Method 11/18/24 11:45 36.7 C 58 L 18 185/65 H 99 Room Air 11/18/24 08:26 36.7 C 73 18 160/65 H 98 Room Air 11/18/24 07:44 11/18/24 07:44 62 11/18/24 04:00 36.9 C 70 20 170/66 H 96 Room Air O2 Del Method 11/18/24 11:45 11/18/24 08:26 11/18/24 07:44 Room Air 11/18/24 07:44 11/18/24 04:00 Laboratory Results Laboratory Results - last 48 hr 11/16/24 11/16/24 11/16/24 16:59 18:02 20:06 WBC RBC Hgb Hct MCV MCH MCHC RDW Std Deviation RDW Coeff of Grey Plt Count MPV Sodium Potassium Chloride Carbon Dioxide Anion Gap BUN Creatinine Est Cr Clr Drug Dosing eGFR BUN/Creatinine Ratio Glucose POC Glucose 99 97 Estimat Average Glucose Hemoglobin A1c Calcium Phosphorus Magnesium Total Bilirubin AST ALT Alkaline Phosphatase Troponin I High Sens 12.6 Total Protein Albumin Globulin Albumin/Globulin Ratio Triglycerides Cholesterol LDL Cholesterol, Calc VLDL Cholesterol, Calc HDL Cholesterol Cholesterol/HDL Ratio TSH Urine Color Urine Appearance Urine pH Ur Specific [place] Urine Protein Urine Glucose (UA) Urine Ketones Urine Blood Urine Nitrite Urine Bilirubin Urine Urobilinogen Ur Leukocyte Esterase Urine WBC (Auto) Urine RBC (Auto) U Hyaline Cast (Auto) U Epithel Cells (Auto) Urine Bacteria (Auto) Urine Comment Adenovirus (PCR) B. pertussis DNA (PCR) B.parapertussis DNA PCR C. pneumoniae DNA (PCR) Coronavirus OC43 (PCR) Coronavirus HKU1 (PCR) Coronavirus 229E (PCR) SARS-CoV-2 (PCR) Coronavirus NL63 (PCR) Human Metapneumovir PCR Influenza Type A (PCR) Influenza Type B (PCR) M. pneumoniae (PCR) Parainfluenza 1 (PCR) Parainfluenza 2 (PCR) Parainfluenza 3 (PCR) Parainfluenza 4 (PCR) RSV (PCR) Entero/Rhino (PCR) 11/16/24 11/17/24 11/17/24 Unknown 05:40 07:40 WBC 6.38 RBC 3.92 L Hgb 12.3 Hct 36.8 L MCV 93.9 MCH 31.4 MCHC 33.4 RDW Std Deviation 42.4 RDW Coeff of Grey 12.3 Plt Count 178 MPV 10.2 Sodium 137 Potassium 3.6 Chloride 103 Carbon Dioxide 25 Anion Gap 9 BUN 18 Creatinine 0.66 Est Cr Clr Drug Dosing 66.1 eGFR 93.73 BUN/Creatinine Ratio 27.3 H Glucose 113 H POC Glucose 122 H Estimat Average Glucose 114 Hemoglobin A1c 5.6 Calcium 9.2 Phosphorus Magnesium 1.6 L Total Bilirubin 0.5 AST 34 ALT 32 Alkaline Phosphatase 102 Troponin I High Sens Total Protein 7.0 Albumin 3.8 Globulin 3.2 Albumin/Globulin Ratio 1.2 Triglycerides 121 Cholesterol 178 LDL Cholesterol, Calc 109 VLDL Cholesterol, Calc 24 HDL Cholesterol 45 Cholesterol/HDL Ratio 4.0 TSH 0.598 Urine Color Yellow Urine Appearance Clear Urine pH 7.0 Ur Specific [place] 1.013 Urine Protein Trace H Urine Glucose (UA) Negative Urine Ketones Negative Urine Blood Negative Urine Nitrite Negative Urine Bilirubin Negative Urine Urobilinogen Negative Ur Leukocyte Esterase Negative Urine WBC (Auto) 0-5 Urine RBC (Auto) 0-2 U Hyaline Cast (Auto) 0-2 U Epithel Cells (Auto) 0-2 Urine Bacteria (Auto) None Seen Urine Comment Adenovirus (PCR) Not Detected B. pertussis DNA (PCR) Not Detected B.parapertussis DNA PCR Not Detected C. pneumoniae DNA (PCR) Not Detected Coronavirus OC43 (PCR) Not Detected Coronavirus HKU1 (PCR) Not Detected Coronavirus 229E (PCR) Not Detected SARS-CoV-2 (PCR) Not Detected Coronavirus NL63 (PCR) Not Detected Human Metapneumovir PCR Not Detected Influenza Type A (PCR) Not Detected Influenza Type B (PCR) Not Detected M. pneumoniae (PCR) Not Detected Parainfluenza 1 (PCR) Not Detected Parainfluenza 2 (PCR) Not Detected Parainfluenza 3 (PCR) Not Detected Parainfluenza 4 (PCR) Not Detected RSV (PCR) Not Detected Entero/Rhino (PCR) Not Detected 11/17/24 11/17/24 11/17/24 11:15 16:04 20:21 WBC RBC Hgb Hct MCV MCH MCHC RDW Std Deviation RDW Coeff of Grey Plt Count MPV Sodium Potassium Chloride Carbon Dioxide Anion Gap BUN Creatinine Est Cr Clr Drug Dosing eGFR BUN/Creatinine Ratio Glucose POC Glucose 93 132 H 130 H Estimat Average Glucose Hemoglobin A1c Calcium Phosphorus Magnesium Total Bilirubin AST ALT Alkaline Phosphatase Troponin I High Sens Total Protein Albumin Globulin Albumin/Globulin Ratio Triglycerides Cholesterol LDL Cholesterol, Calc VLDL Cholesterol, Calc HDL Cholesterol Cholesterol/HDL Ratio TSH Urine Color Urine Appearance Urine pH Ur Specific [place] Urine Protein Urine Glucose (UA) Urine Ketones Urine Blood Urine Nitrite Urine Bilirubin Urine Urobilinogen Ur Leukocyte Esterase Urine WBC (Auto) Urine RBC (Auto) U Hyaline Cast (Auto) U Epithel Cells (Auto) Urine Bacteria (Auto) Urine Comment Adenovirus (PCR) B. pertussis DNA (PCR) B.parapertussis DNA PCR C. pneumoniae DNA (PCR) Coronavirus OC43 (PCR) Coronavirus HKU1 (PCR) Coronavirus 229E (PCR) SARS-CoV-2 (PCR) Coronavirus NL63 (PCR) Human Metapneumovir PCR Influenza Type A (PCR) Influenza Type B (PCR) M. pneumoniae (PCR) Parainfluenza 1 (PCR) Parainfluenza 2 (PCR) Parainfluenza 3 (PCR) Parainfluenza 4 (PCR) RSV (PCR) Entero/Rhino (PCR) 11/18/24 11/18/24 11/18/24 05:55 07:35 11:26 WBC 8.12 RBC 3.86 L Hgb 12.6 Hct 35.7 L MCV 92.5 MCH 32.6 MCHC 35.3 RDW Std Deviation 40.6 RDW Coeff of Grey 11.9 Plt Count 205 MPV 10.1 Sodium 135 L Potassium 3.9 Chloride 104 Carbon Dioxide 23 Anion Gap 8 BUN 20 Creatinine 0.70 Est Cr Clr Drug Dosing 61.9 eGFR 92.41 BUN/Creatinine Ratio 28.6 H Glucose 109 H POC Glucose 106 H 114 H Estimat Average Glucose Hemoglobin A1c Calcium 9.1 Phosphorus 3.8 Magnesium 1.9 Total Bilirubin AST ALT Alkaline Phosphatase Troponin I High Sens Total Protein Albumin Globulin Albumin/Globulin Ratio Triglycerides Cholesterol LDL Cholesterol, Calc VLDL Cholesterol, Calc HDL Cholesterol Cholesterol/HDL Ratio TSH Urine Color Urine Appearance Urine pH Ur Specific [place] Urine Protein Urine Glucose (UA) Urine Ketones Urine Blood Urine Nitrite Urine Bilirubin Urine Urobilinogen Ur Leukocyte Esterase Urine WBC (Auto) Urine RBC (Auto) U Hyaline Cast (Auto) U Epithel Cells (Auto) Urine Bacteria (Auto) Urine Comment Adenovirus (PCR) B. pertussis DNA (PCR) B.parapertussis DNA PCR C. pneumoniae DNA (PCR) Coronavirus OC43 (PCR) Coronavirus HKU1 (PCR) Coronavirus 229E (PCR) SARS-CoV-2 (PCR) Coronavirus NL63 (PCR) Human Metapneumovir PCR Influenza Type A (PCR) Influenza Type B (PCR) M. pneumoniae (PCR) Parainfluenza 1 (PCR) Parainfluenza 2 (PCR) Parainfluenza 3 (PCR) Parainfluenza 4 (PCR) RSV (PCR) Entero/Rhino (PCR) Diagnostic Findings Laboratory Results WBC 8.12 K/ul (4.8-10.8) 11/18/24 05:55 RBC 3.86 M/uL (4.20-5.40) L 11/18/24 05:55 Hgb 12.6 g/dl (12.0-16.0) 11/18/24 05:55 Hct 35.7 % (37.0-47.0) L 11/18/24 05:55 MCV 92.5 fL (80.0-100.0) 11/18/24 05:55 MCH 32.6 pg (25.0-34.0) 11/18/24 05:55 MCHC 35.3 g/dL (32.0-36.0) 11/18/24 05:55 RDW Std Deviation 40.6 fL (36.4-46.3) 11/18/24 05:55 RDW Coeff of Grey 11.9 % (11.5-14.5) 11/18/24 05:55 Plt Count 205 K/uL (130-400) 11/18/24 05:55 MPV 10.1 fL (9.4-12.4) 11/18/24 05:55 Immature Gran % (Auto) 0.3 % 11/16/24 12:01 Neut % (Auto) 79.0 % 11/16/24 12:01 Lymph % (Auto) 10.4 % 11/16/24 12:01 [place] % (Auto) 10.0 % 11/16/24 12:01 Eos % (Auto) 0.1 % 11/16/24 12:01 Baso % (Auto) 0.2 % 11/16/24 12:01 Neut # (Auto) 10.28 K/uL (1.40-6.50) H 11/16/24 12:01 Lymph # (Auto) 1.36 K/uL (1.20-3.40) 11/16/24 12:01 [place] # (Auto) 1.30 K/uL (0.11-0.59) H 11/16/24 12:01 Eos # (Auto) 0.01 K/uL (0.00-0.50) 11/16/24 12:01 Baso # (Auto) 0.03 K/uL (0.00-0.20) 11/16/24 12:01 Immature Gran # (Auto) 0.04 K/uL (0.01-0.20) 11/16/24 12:01 Sodium 135 mmol/L (136-145) L 11/18/24 05:55 Potassium 3.9 mmol/L (3.5-5.1) 11/18/24 05:55 Chloride 104 mmol/L (98-107) 11/18/24 05:55 Carbon Dioxide 23 mmol/L (21-32) 11/18/24 05:55 Anion Gap 8 (3-11) 11/18/24 05:55 BUN 20 mg/dl (6-23) 11/18/24 05:55 Creatinine 0.70 mg/dl (0.6-1.2) 11/18/24 05:55 Est Cr Clr Drug Dosing 61.9 ml/min 11/18/24 05:55 eGFR 92.41 11/18/24 05:55 BUN/Creatinine Ratio 28.6 (10-20) H 11/18/24 05:55 Glucose 109 mg/dl (70-99(Fasting)) H 11/18/24 05:55 POC Glucose 114 mg/dl (70-99) H 11/18/24 11:26 Estimat Average Glucose 114 mg/dl 11/17/24 05:40 Hemoglobin A1c 5.6 % (4.5-5.6) 11/17/24 05:40 Calcium 9.1 mg/dl (8.6-10.3) 11/18/24 05:55 Phosphorus 3.8 mg/dl (2.5-4.9) 11/18/24 05:55 Magnesium 1.9 mg/dl (1.7-2.4) 11/18/24 05:55 Total Bilirubin 0.5 mg/dl (0.2-1.0) 11/17/24 05:40 AST 34 U/L (13-39) 11/17/24 05:40 ALT 32 U/L (7-52) 11/17/24 05:40 Alkaline Phosphatase 102 U/L (34-104) 11/17/24 05:40 Troponin I High Sens 12.6 pg/ml (0-14) 11/16/24 16:59 Total Protein 7.0 gm/dl (6.0-8.3) 11/17/24 05:40 Albumin 3.8 gm/dl (3.4-5.0) 11/17/24 05:40 Globulin 3.2 gm/dl (2.5-4.0) 11/17/24 05:40 Albumin/Globulin Ratio 1.2 (0.9-2) 11/17/24 05:40 Triglycerides 121 mg/dl (0-150) 11/17/24 05:40 Cholesterol 178 mg/dl (0-200) 11/17/24 05:40 LDL Cholesterol, Calc 109 mg/dl 11/17/24 05:40 VLDL Cholesterol, Calc 24 mg/dl (0-30) 11/17/24 05:40 HDL Cholesterol 45 mg/dl 11/17/24 05:40 Cholesterol/HDL Ratio 4.0 (0-5) 11/17/24 05:40 TSH 0.598 uIu/ml (0.300-4.500) 11/17/24 05:40 Urine Color Yellow 11/16/24 Unknown Urine Appearance Clear (Clear) 11/16/24 Unknown Urine pH 7.0 (4.5-7.5) 11/16/24 Unknown Ur Specific [place] 1.013 (1.000-1.030) 11/16/24 Unknown Urine Protein Trace (Negative) H 11/16/24 Unknown Urine Glucose (UA) Negative (Negative) 11/16/24 Unknown Urine Ketones Negative (Negative) 11/16/24 Unknown Urine Blood Negative (Negative) 11/16/24 Unknown Urine Nitrite Negative (Negative) 11/16/24 Unknown Urine Bilirubin Negative (Negative) 11/16/24 Unknown Urine Urobilinogen Negative (Negative) 11/16/24 Unknown Ur Leukocyte Esterase Negative (Negative) 11/16/24 Unknown Urine WBC (Auto) 0-5 /hpf (0-5) 11/16/24 Unknown Urine RBC (Auto) 0-2 /hpf (0-2) 11/16/24 Unknown U Hyaline Cast (Auto) 0-2 /lpf (0-2) 11/16/24 Unknown U Epithel Cells (Auto) 0-2 /hpf (0-2) 11/16/24 Unknown Urine Bacteria (Auto) None Seen (None Seen) 11/16/24 Unknown Urine Comment 11/16/24 Unknown Adenovirus (PCR) Not Detected (NotDetected) 11/16/24 Unknown B. pertussis DNA (PCR) Not Detected (NotDetected) 11/16/24 Unknown B.parapertussis DNA PCR Not Detected (NotDetected) 11/16/24 Unknown C. pneumoniae DNA (PCR) Not Detected (NotDetected) 11/16/24 Unknown Coronavirus OC43 (PCR) Not Detected (NotDetected) 11/16/24 Unknown Coronavirus HKU1 (PCR) Not Detected (NotDetected) 11/16/24 Unknown Coronavirus 229E (PCR) Not Detected (NotDetected) 11/16/24 Unknown SARS-CoV-2 (PCR) Not Detected (NotDetected) 11/16/24 Unknown Coronavirus NL63 (PCR) Not Detected (NotDetected) 11/16/24 Unknown Human Metapneumovir PCR Not Detected (NotDetected) 11/16/24 Unknown Influenza Type A (PCR) Not Detected (NotDetected) 11/16/24 Unknown Influenza Type B (PCR) Not Detected (NotDetected) 11/16/24 Unknown M. pneumoniae (PCR) Not Detected (NotDetected) 11/16/24 Unknown Parainfluenza 1 (PCR) Not Detected (NotDetected) 11/16/24 Unknown Parainfluenza 2 (PCR) Not Detected (NotDetected) 11/16/24 Unknown Parainfluenza 3 (PCR) Not Detected (NotDetected) 11/16/24 Unknown Parainfluenza 4 (PCR) Not Detected (NotDetected) 11/16/24 Unknown RSV (PCR) Not Detected (NotDetected) 11/16/24 Unknown Entero/Rhino (PCR) Not Detected (NotDetected) 11/16/24 Unknown Impressions Chest X-Ray 11/16/24 12:21 XR chest 1V portable CLINICAL HISTORY: HTN COMPARISON STUDY: None FINDINGS: Heart size and pulmonary vasculature are normal. Lungs are hyperexpanded. No consolidation or pleural effusion seen. No pneumothorax. IMPRESSION: No acute findings. ACT 112: Negative or not required by law. Electronically signed by: Ba Mann M.D. 11/16/2024 12:[address] 11/16/24 12:21 CT head/brain wo con CLINICAL HISTORY: 69 years-old Female with Unsteady gait. TECHNIQUE: Multiple axial CT images of the head were obtained without contrast. A dose lowering technique was utilized adhering to the principles of ALARA. CT DOSE: 703.85 mGy.cm COMPARISON: None. FINDINGS: No acute intracranial hemorrhage, midline shift, intracranial mass, hydrocephalus, territorial ischemia or abnormal extra-axial collection. Involutional changes with white matter hypodensities suggestive of chronic microvascular ischemic disease. Study is mildly motion degraded. Age- indeterminate small lacunar infarct of the left thalamus, image 15 series 2. Chronic infarct versus prominent perivascular space involving the right basal ganglia on image 14 series 2. The calvarium is intact. The paranasal sinuses, mastoid air cells, and middle ear cavities are clear. IMPRESSION: 1. No definite acute intracranial abnormality identified. 2. Age indeterminate subcentimeter left thalamic lacunar infarct. ACT 112: Negative or not required by law. The above report was generated using voice recognition software. It may contain grammatical, syntax or spelling errors. Electronically signed by: Jose Manuel Will M.D. 11/16/2024 1:14 PM Brain MRI 11/16/24 17:36 CR Exam(s): MRI HEAD Without Contrast EXAM: MR Head Without Intravenous Contrast CLINICAL HISTORY: Age indeterminate CVA on head CT. TECHNIQUE: Magnetic resonance images of the head/brain without intravenous contrast in multiple planes. COMPARISON: CT Brain 11-16-2024. FINDINGS: Brain: Age-appropriate central and peripheral atrophy. 6 x 8 mm acute nonhemorrhagic left thalamic lacunar infarct without mass effect. Mild degree of supratentorial periventricular and subcortical white matter hyperintensities on FLAIR and T2-weighted images. No acute hemorrhage or abnormal extra-axial fluid collection. Ventricles: No midline shift. No ventriculomegaly. Bones/joints: Unremarkable. No acute fracture. Sinuses: Unremarkable as visualized. No acute sinusitis. Mastoid air cells: Unremarkable as visualized. No mastoid effusion. Orbits: Unremarkable as visualized. IMPRESSION: 1. Acute nonhemorrhagic left thalamic lacunar infarct without mass effect 2. Nonspecific white matter changes most commonly seen with small vessel disease. Communications: Call Doctor Stroke Electronically signed by: Gokul Gray M.D. 11/16/24 22:18 PM Head CTA 11/17/24 12:15 CT angio head w con CLINICAL HISTORY: 69 years-old Female with cva. Acute stroke like symptoms COMPARISON STUDY: Head CT 11/16/2024, brain MR 11/16/2024. TECHNIQUE: Following the IV administration of 120 cc of Optiray, CT angiogram of the brain was performed from the skull base to the vertex. Images are reviewed in the axial, sagittal, and coronal planes. 3-D MIPS images are created and assessed. IV contrast was administered without complication. All measurements were obtained according to NASCET criteria. A dose lowering technique was utilized adhering to the principles of ALARA. FINDINGS: CT ANGIOGRAM OF THE BRAIN: The imaged bilateral internal carotid arteries are patent. Peripherally calcified 6 x 3 x 4 mm saccular aneurysm is noted involving the supraclinoid se gment of the left ICA on image 117 series 3 without rupture. 3 mm saccular aneurysm of the right carotid terminus. Mild multifocal stenoses of the middle cerebral arteries. There is a short segment high-grade stenosis involving M2 branch of the right middle cerebral artery on image 118 series 3. Short segment intermediate grade stenosis of the left MCA on image 124. The anterior cerebral arteries are widely patent. Vertebral venous sinuses are patent. The vertebral and basilar arteries are patent. Multifocal moderate to high-grade stenoses within the bilateral posterior cerebral arteries. No definite arterial occlusion identified. The acute left thalamic lacunar infarct is better seen on yesterday's MRI. Involutional changes with chronic microvascular ischemic disease. IMPRESSION: 1. Acute left thalamic lacunar infarct better seen on yesterday's MRI. 2. Multifocal intermediate to high-grade stenoses of the posterior cerebral arteries. 3. 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 ACT 112: Negative or not required by law. The above report was generated using voice recognition software. It may contain grammatical, syntax or spelling errors. Electronically signed by: Jose Manuel Will M.D. 11/17/2024 1:44 PM Neck CTA 11/17/24 12:27 CT ANGIOGRAPHY OF THE NECK WITH CONTRAST CLINICAL HISTORY: Cerebrovascular accident. COMPARISON STUDY: No previous studies for comparison. Technique: CT angiography of the carotid and vertebral arteries was obtained using Optiray and 3D reconstruction on an independent workstation. NASCET criteria was utilized. Automated exposure control was utilized for the study. A dose lowering technique was utilized adhering to the principles of ALARA. CT DOSE: 439.74 mGy.cm Findings: Visualized lung apices are unremarkable. There is no cervical lymphadenopathy. There are no cervical spine fractures. There is mild plaque within the proximal right internal carotid artery without stenosis. There is moderate calcified plaque at the left carotid bifurcation. This results in 40% stenosis of the proximal left internal carotid artery. The vessel measures 2.3 mm at site of narrowing and 4 mm distally. Mild irregularity of the distal cervical internal carotid arteries is likely due to atherosclerosis. There is no aneurysm or dissection within the neck. The left vertebral artery is dominant. The CTA of the head will be reported separately. IMPRESSION: 1. 40% stenosis within the proximal left internal carotid artery due to calcified atherosclerotic plaque. 2. No aneurysm or dissection within the neck. ACT 112: Negative or not required by law. Electronically signed by: Anders Ma M.D. 11/17/2024 1:36 PM 11/17/24 ECHO Interpretation Summary Left ventricular systolic function is normal. Left Ventricular Ejection Fraction = 55-60%. Diastolic dysfunction, Grade II (pseudonormalization pattern). There is mild mitral regurgitation. The interatrial septum is intact with no evidence for an atrial septal defect. Injection of contrast documented no interatrial shunt. Medications Administered Home Medications Medication Instructions Recorded Confirmed Last Taken abatacept 125 mg/mL subcutaneous 125 mg subcut WK 08/25/24 11/16/24 11/15/24 auto-injector ([employer]) duloxetine 60 mg capsule,delayed 60 mg PO DAILY 08/25/24 11/16/24 11/16/24 release losartan 25 mg tablet 25 mg PO DAILY 08/25/24 11/16/24 11/16/24 metformin 500 mg tablet,extended 500 mg PO QDL 08/25/24 11/16/24 11/15/24 release 24 hr metoprolol tartrate 50 mg tablet 50 mg PO BID 08/25/24 11/16/24 11/16/24 08:00 pantoprazole 40 mg tablet,delayed 40 mg PO QDL 08/25/24 11/16/24 11/15/24 release prednisone 5 mg tablet 5 mg PO QDL 08/25/24 11/16/24 11/15/24 Active Medications Generic Name Dose Route Start Last Admin Trade Name Freq PRN Reason Stop Dose Admin Amlodipine Besylate 5 mg 11/16/24 18:15 11/18/24 08:55 Amlodipine Besylate 5 Mg Tab PO 12/16/24 18:14 5 mg QAM WEN Administration Aspirin 81 mg 11/17/24 14:45 11/18/24 08:57 Aspirin 81 Mg Ectab PO 12/17/24 14:44 81 mg DAILY EWN Administration Atorvastatin Calcium 40 mg 11/17/24 12:15 11/18/24 08:57 Atorvastatin 40 Mg Tab PO 12/17/24 12:14 40 mg QAM WEN Administration Clopidogrel Bisulfate 75 mg 11/17/24 17:00 11/18/24 08:57 Clopidogrel Bisulfate 75 Mg Tab PO 12/17/24 16:59 75 mg QAM WEN Administration Duloxetine HCl 60 mg 11/17/24 09:00 11/18/24 08:55 Duloxetine Hcl 60 Mg Cap PO 12/17/24 08:59 60 mg DAILY WEN Administration Folic Acid 1 mg 11/17/24 09:00 11/18/24 08:56 Folic Acid 1 Mg Tab PO 12/17/24 08:59 1 mg QAM WEN Administration Insulin Aspart 0 units 11/16/24 17:36 11/18/24 11:31 Insulin Aspart Per Unit Charge SC 12/16/24 17:35 Not Given ACHS WEN Labetalol HCl 10 mg 11/16/24 22:23 11/17/24 23:32 Labetalol Hcl Iv 5 Mg/Ml 20ml IV 12/16/24 22:22 10 mg Q4H PRN Administration Hypertension Losartan Potassium 50 mg 11/17/24 09:00 11/18/24 08:56 Losartan Potassium 50 Mg Tab PO 12/17/24 08:59 50 mg DAILY WEN Administration Metoprolol Tartrate 50 mg 11/17/24 09:00 11/18/24 08:56 Metoprolol Tartrate 50 Mg Tab PO 12/17/24 08:59 50 mg BID WEN Administration Multivitamins 1 tab 11/17/24 09:00 11/18/24 08:56 Multivitamin Tab PO 12/17/24 08:59 1 tab QAM WEN Administration Pantoprazole Sodium 40 mg 11/17/24 11:30 11/18/24 12:12 Pantoprazole 40 Mg Tab PO 12/17/24 11:29 40 mg QDL WEN Administration Prednisone 5 mg 11/17/24 11:30 11/18/24 12:12 Prednisone 5 Mg Tab PO 12/17/24 11:29 5 mg QDL WEN Administration Thiamine HCl 100 mg 11/17/24 09:00 11/18/24 08:55 Thiamine Hcl 100 Mg Tab PO 12/17/24 08:59 100 mg QAM WEN Administration PG Care Time/CCT Total # of Minutes Spent Total Time Spent with Patient: Total time spent is greater than 50% in coordination of care (as documented) at patient's floor/unit and/or counseling patient: Coding Level of Care Code 50163 SUB INP/OBS CARE 3/50MIN Diagnoses Hypertensive emergency I16.1 Left thalamic infarction I63.81
[2024-11-18] MEDS: LOSARTAN POTASSIUM 50 MG TAB PO SCH (20:01)
[2024-11-19 07:25] LABS: Hematocrit (blood only) 37.1 % (37.0-47.0); Hemoglobin 12.9 g/dl (12.0-16.0); Mean Corpuscular Hemoglobin 32.4 pg (25.0-34.0); Mean Corpuscular Volume 93.2 fL (80.0-100.0); Platelet Count 227 K/uL (130-400); RDW Standard Deviation 41.6 fL (36.4-46.3); Red Blood Count 3.98 M/uL (4.20-5.40); White Blood Count 7.53 K/ul (4.8-10.8)
[2024-11-19 07:47] LABS: Anion Gap 10.0 (3-11); Blood Urea Nitrogen 22.0 mg/dl (6-23); Calcium 9.3 mg/dl (8.6-10.3); Carbon Dioxide 22.0 mmol/L (21-32); Chloride 107.0 mmol/L (98-107); Creatinine Clr Calc Pharmacy 63.6 ml/min; Glucose 105.0 mg/dl (70-99(Fasting)); Magnesium 1.8 mg/dl (1.7-2.4); Potassium 3.6 mmol/L (3.5-5.1); Sodium 139.0 mmol/L (136-145)
[2024-11-19] MEDS: POLYETHYLENE (MIRALAX) 17 GM PACK PO PRN (15:16)
[2024-11-19] MEDS: MAGNESIUM HYDROXIDE SUSP 30 ML UDC PO PRN (15:16)
--- NOTE | 2024-11-19 15:58 | Hospitalist Progress Note ---
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 No recent changes to home antihypertensive regimen. SBP persistently in the 170s-220s over the past 2 weeks despite compliance with home antihypertensive regimen. Experiences coinciding dizziness, floaters in vision, unsteady gait, centralized chest pressure, SOB and lower lip tingling with this. In the ED around 15:30, patient's BP was 244/112. Patient was symptomatic with this. Described centralized chest pressure, SOB and lower lip tingling. Hypertensive emergency History as per above. No focal deficits appreciated on exam. ? acute vs subacute vs chronic left thalamic infarct as below. Troponin x 1 negative, will repeat. EKG personally reviewed: lots of artifact, possible ST depression in lateral leads. Repeat EKG with chest pain PRN. Case discussed between undersigned attending physician and ICU physician on- call, Dr. Martin. -Initial consideration was made for possible IV esmolol or nicardipine drip. -Holding off on initiation of antihypertensive drip for now. Advised to trial additional doses of Lopressor 50mg, losartan 50mg. Continued Lopressor 50mg bid, losartan 50mg daily, amlodipine 5 mg daily Cardiology consulted 10 BP elevated yesterday throughout the day. This AM BP 160/65. Cont. to closely monitor 11/19 Amlodipine increased to 10 mg daily,losartan 50 mg increased to BID yesterday. Pt still required prn labetalol and hydralazine overnight. Cardiology updated as well - changing meds- to procardia Left thalamic infarction, lacunar infarct of the left thalamus Neurology consulted and discussed with - Breonna Oneal presents with an incidentally discovered small left thalamic stroke in the setting of hypertension. Hypertension likely secondary to the acute stroke though is an independent risk factor as this is a small vessel lacunar stroke. - CT angiography with contrast of the head and neck to evaluate cerebral vasculature. 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 Would also refer to neurosurgery for the noted aneurysms - specifically the R ICA terminus aneurysm. - Continue aspirin for secondary stroke prevention. - Initiate statin therapy to reduce LDL from 109 to <70. --> lipitor 40 started - Medicine team to optimize antihypertensive regimen. - Neurology follow-up in 4-6 weeks Current hemoglobin A1c 5.6%, lipid panel - LDL 109 Leukocytosis, resolved Suspect reactive elevation in setting of above. No clear signs or symptoms of infection. WBC now normalized DMII Hold metformin, SSI protocol while admitted. Follow BSG checks ACHS, A1c 5.6% Tobacco use disorder Smokes 1ppd, has been smoking since around age 11. Declined need for nicotine patch at this time. Cessation encouraged. Alcohol use Consumes approximately 4 glasses of wine/night x several years. No prior history of alcohol withdrawal or alcohol withdrawal seizures. AWSS protocol with PRN IV Ativan, monitor AWSS. Rheumatoid arthritis Chronic bilateral hand weakness which is unchanged from baseline. BUE strength 5/5 on exam. On prednisone 5mg daily (on this for over 3 years), can continue. 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 Fibromyalgia Recently had epidural injections done this past Wednesday, reports done in mid back. Continue duloxetine. Hepatic steatosis LFTs appear to be around baseline, continue to monitor. GERD Continue PPI. DVT Prophylaxis: SCDs Code Status: FULL CODE PCP: Micaela Kelley MD Disposition: PCU Admission and Anticipated Discharge Date Admission Date: November 17, 2024 Subjective Pt seen in follow up, uncontrolled hypertension, also found to have an acute cva Overall pt is feeling well. Denies any chest pain, or headache or change in vision. Denies any shortness of breath. No fevers, chills Reports hx of ongoing chronic pain issues, was seen recently at pain clinic. Also follows w/ for RA. BP still quite elevated but improved from admission Neurology consulted and discussed with - CTA head and neck obtained, cont. ASA + plavix, will need neurosurgery referral - pt and her aware (pt's updated previously over the phone) Cardiology consulted to help w/ uncontrolled BP -> changing meds Overnight required labetalol, hydralazine Review of Systems Review of Systems: All systems reviewed & are unremarkable except as noted in Subjective Physical Exam Physical Exam: General: WD/WN, Elderly F in NAD, A&Ox3, conversing appropriately HEENT: Normocephalic, atraumatic, external ear and nose normal Respiratory: Normal respiratory effort, CTAB Cardiovascular: RRR, no BLE edema Abdomen/GI: Normal bowel sounds, soft, nontender to palpation in all quadrants Neurologic: awake, alert, no facial asymmetry, speech fluent, No focal deficits appreciated, extremity motor strength intact, actively moves all extremities Results & Data Results & Data Vital Signs (Past 12 Hours) Vital Signs Temp Pulse Pulse Resp BP BP Pulse Ox 11/19/24 15:37 36.6 C 65 18 159/85 H 97 11/19/24 14:43 64 11/19/24 11:00 36.8 C 60 18 165/72 H 98 11/19/24 07:31 36.8 C 69 18 170/72 H 175/66 H 97 11/19/24 07:30 11/19/24 07:14 67 11/19/24 06:53 69 182/67 H 11/19/24 04:00 206/81 H O2 Del Method O2 Del Method 11/19/24 15:37 Room Air 11/19/24 14:43 11/19/24 11:00 Room Air 11/19/24 07:31 Room Air 11/19/24 07:30 Room Air 11/19/24 07:14 11/19/24 06:53 11/19/24 04:00 Laboratory Results 11/19/24 11/19/24 11/19/24 Range/Units 11:18 07:26 06:38 WBC 7.53 (4.8-10.8) K/ul RBC 3.98 L (4.20-5.40) M/uL Hgb 12.9 (12.0-16.0) g/dl Hct 37.1 (37.0-47.0) % MCV 93.2 (80.0-100.0) fL MCH 32.4 (25.0-34.0) pg MCHC 34.8 (32.0-36.0) g/dL RDW Std Deviation 41.6 (36.4-46.3) fL RDW Coeff of Rgey 12.0 (11.5-14.5) % Plt Count 227 (130-400) K/uL MPV 10.0 (9.4-12.4) fL Sodium 139 (136-145) mmol/L Potassium 3.6 (3.5-5.1) mmol/L Chloride 107 (98-107) mmol/L Carbon Dioxide 22 (21-32) mmol/L Anion Gap 10 (3-11) BUN 22 (6-23) mg/dl Creatinine 0.69 (0.6-1.2) mg/dl Est Cr Clr Drug Dosing 63.6 ml/min eGFR 92.73 BUN/Creatinine Ratio 31.9 H (10-20) Glucose 105 H (70-99(Fasting)) mg/dl POC Glucose 97 97 (70-99) mg/dl Calcium 9.3 (8.6-10.3) mg/dl Phosphorus 3.6 (2.5-4.9) mg/dl Magnesium 1.8 (1.7-2.4) mg/dl 11/18/24 11/18/24 Range/Units 19:58 16:29 WBC (4.8-10.8) K/ul RBC (4.20-5.40) M/uL Hgb (12.0-16.0) g/dl Hct (37.0-47.0) % MCV (80.0-100.0) fL MCH (25.0-34.0) pg MCHC (32.0-36.0) g/dL RDW Std Deviation (36.4-46.3) fL RDW Coeff of Grey (11.5-14.5) % Plt Count (130-400) K/uL MPV (9.4-12.4) fL Sodium (136-145) mmol/L Potassium (3.5-5.1) mmol/L Chloride (98-107) mmol/L Carbon Dioxide (21-32) mmol/L Anion Gap (3-11) BUN (6-23) mg/dl Creatinine (0.6-1.2) mg/dl Est Cr Clr Drug Dosing ml/min eGFR BUN/Creatinine Ratio (10-20) Glucose (70-99(Fasting)) mg/dl POC Glucose 103 H 164 H (70-99) mg/dl Calcium (8.6-10.3) mg/dl Phosphorus (2.5-4.9) mg/dl Magnesium (1.7-2.4) mg/dl Medications Administered Current Inpatient Medications Acetaminophen (Acetaminophen 325 Mg Tab) 650 mg PO Q4H PRN PRN Reason: Pain or Fever Stop: 12/16/24 17:35 Amlodipine Besylate (Amlodipine Besylate 5 Mg Tab) 10 mg PO QAM [facility] Stop: 12/19/24 08:59 Last Admin: 11/19/24 08:16 Dose: 10 mg Aspirin (Aspirin 81 Mg Ectab) 81 mg PO DAILY [facility] Stop: 12/17/24 14:44 Last Admin: 11/19/24 08:16 Dose: 81 mg Atorvastatin Calcium (Atorvastatin 40 Mg Tab) 40 mg PO [facility] Stop: 12/17/24 12:14 Last Admin: 11/19/24 08:15 Dose: 40 mg Clopidogrel Bisulfate (Clopidogrel Bisulfate 75 Mg Tab) 75 mg PO [facility] Stop: 12/17/24 16:59 Last Admin: 11/19/24 08:16 Dose: 75 mg Dextrose (Dextrose 50% 50 Ml Syringe) 25 - 50 ml IV UD PRN; Protocol PRN Reason: Hypoglycemia Protocol Stop: 12/16/24 17:35 Duloxetine HCl (Duloxetine Hcl 60 Mg Cap) 60 mg PO DAILY [facility] Stop: 12/17/24 08:59 Last Admin: 11/19/24 08:16 Dose: 60 mg Folic Acid (Folic Acid 1 Mg Tab) 1 mg PO [facility] Stop: 12/17/24 08:59 Last Admin: 11/19/24 08:16 Dose: 1 mg Glucagon (Glucagon For Inj 1 Mg Vial) 1 mg SQ UD PRN; Protocol PRN Reason: Hypoglycemia Protocol Stop: 12/16/24 17:35 Glucose (Glucose 40% Gel 15 Gm Tube) 15 - 30 gm PO UD PRN; Protocol PRN Reason: Hypoglycemia Protocol Stop: 12/16/24 17:35 Glucose (Glucose 10 Tab/Tube) 4 - 8 tab PO UD PRN; Protocol PRN Reason: Hypoglycemia Protocol Stop: 12/16/24 17:35 Lorazepam 1 mg/ Syringe 1 mls @ 2 mls/min IV ONE PRN; Protocol PRN Reason: EtoH Withdrawal AWSS 6-10 Insulin Aspart (Insulin Aspart Per Unit Charge) 0 units SC ACHS [facility] Stop: 12/16/24 17:35 Last Admin: 11/19/24 11:35 Dose: Not Given Labetalol HCl (Labetalol Hcl Iv 5 Mg/Ml 20ml) 10 mg IV Q4H PRN PRN Reason: Hypertension Stop: 12/16/24 22:22 Last Admin: 11/19/24 03:28 Dose: 10 mg Losartan Potassium (Losartan Potassium 50 Mg Tab) 50 mg PO BID [facility] Stop: 12/18/24 20:59 Last Admin: 11/19/24 08:19 Dose: 50 mg Magnesium Hydroxide (Magnesium Hydroxide Susp 30 Ml Udc) 30 ml PO Q12H PRN PRN Reason: Constipation Stop: 12/16/24 17:35 Last Admin: 11/19/24 15:16 Dose: 30 ml Metoprolol Tartrate (Metoprolol Tartrate 50 Mg Tab) 50 mg PO BID [facility] Stop: 12/17/24 08:59 Last Admin: 11/19/24 08:16 Dose: 50 mg Miscellaneous (Carbohydrates For Hypoglycemia ) 15 - 30 gm PO UD PRN PRN Reason: Hypoglycemia Protocol Stop: 12/16/24 17:35 Miscellaneous Information (Pharmacist Discharge Med Rec Consult) 1 each N/A UD PRN PRN Reason: Consult Stop: 12/16/24 17:35 Multivitamins (Multivitamin Tab) 1 tab PO [facility] Stop: 12/17/24 08:59 Last Admin: 11/19/24 08:17 Dose: 1 tab Ondansetron HCl (Ondansetron Inj 2 Mg/Ml 2 Ml Vial) 4 mg IV Q6H PRN PRN Reason: Nausea Stop: 12/16/24 17:35 Pantoprazole Sodium (Pantoprazole 40 Mg Tab) 40 mg PO QDL [facility] Stop: 12/17/24 11:29 Last Admin: 11/19/24 11:50 Dose: 40 mg Polyethylene Glycol (Polyethylene (Miralax) 17 Gm Pack) 17 gm PO DAILY PRN PRN Reason: Constipation Stop: 12/16/24 17:35 Last Admin: 11/19/24 15:16 Dose: 17 gm Prednisone (Prednisone 5 Mg Tab) 5 mg PO QDL [facility] Stop: 12/17/24 11:29 Last Admin: 11/19/24 11:50 Dose: 5 mg Thiamine HCl (Thiamine Hcl 100 Mg Tab) 100 mg PO QAM [facility] Stop: 12/17/24 08:59 Last Admin: 11/19/24 08:16 Dose: 100 mg
--- NOTE | 2024-11-19 16:35 | Cardiology Progress Note ---
Date of Service November 19, 2024 Assessment & Plan (1) Hypertensive emergency: (2) Left thalamic infarction: Plan Assessment: 69 year old female admitted for hypertensive emergency despite medication compliance. CT and confirmed MRI imaging show acute Left Thalamic infarction. Cardiology consulted for further assessment/recommendations. Hypertensive Emergency - better Acute Left thalamic infarction Multifocal intermediate to high-grade stenoses of the posterior cerebral arteries Saccular aneurysms are noted within the distal internal carotid arteries bilaterally measuring up to 6 mm on the left without rupture DM Rheumatoid arthritis Fibromyalgia f/u with Neurology and Neurosurgery Echocardiogram with negative bubble study -as above adjust anti-HTN meds as per Neuro parameters for permissive HTN Use Losartan Change Norvasc to Procardia XL starting tomorrow AM avoid using beta yusuf as first line anti-HTN med correct and f/u electrolytes cont Statin DM optimization - defer to hospitalist avoid hypovolemia keep patient euvolemic DVT prophylaxis Admission and Anticipated Discharge Date Admission Date: November 17, 2024 Supervising Physician Co-Signing Physician Notes Patient seen and examined. Past medical history, surgical history, social history and family history have been reviewed. The medical record and all the above studies have been reviewed. Case DW JUNIOR including management. Hypertensive Emergency Acute Left thalamic infarction DM Rheumatoid arthritis Fibromyalgia Echocardiogram with negative bubble study -as above Neurology eval adjust anti-HTN meds as per Neuro parameters for permissive HTN Use Losartan and Norvasc avoid using beta yusuf as first line anti-HTN med correct and f/u electrolytes Statin DM optimization - defer to hospitalist avoid hypovolemia keep patient euvolemic DVT prophylaxis Subjective Patient on exam is lying in bed in NAD; no c/o cp, sob, palpitations, dizziness; BP fluctuant, suboptimal Review of Systems Review of Systems: as per hpi Physical Exam Constitutional: well developed and well nourished; no acute distress and not ill appearing Neck: normal visual inspection and trachea midline Respiratory: normal respiratory effort, lungs clear to auscultation no cough Auscultation: no crackles, no rales, no rhonchi and no wheezes Cardiovascular: Rate/Rhythm: regular rate and regular rhythm Heart Sounds: normal S1 and normal S2; no murmur Vessels: dorsalis pedis pulses present; no JVD Extremities: no edema Skin: no rashes, warm and dry Psychiatric: A+Ox3, euthymic affect Results & Data Vital Signs (Past 12 Hours) Vital Signs Temp Pulse Pulse Resp BP BP Pulse Ox 11/19/24 15:37 36.6 C 65 18 159/85 H 97 11/19/24 14:43 64 11/19/24 11:00 36.8 C 60 18 165/72 H 98 11/19/24 07:31 36.8 C 69 18 170/72 H 175/66 H 97 11/19/24 07:30 11/19/24 07:14 67 11/19/24 06:53 69 182/67 H O2 Del Method O2 Del Method 11/19/24 15:37 Room Air 11/19/24 14:43 11/19/24 11:00 Room Air 11/19/24 07:31 Room Air 11/19/24 07:30 Room Air 11/19/24 07:14 11/19/24 06:53 Laboratory Results Laboratory Results - last 48 hr 11/17/24 11/18/24 11/18/24 20:21 05:55 07:35 WBC 8.12 RBC 3.86 L Hgb 12.6 Hct 35.7 L MCV 92.5 MCH 32.6 MCHC 35.3 RDW Std Deviation 40.6 RDW Coeff of Grey 11.9 Plt Count 205 MPV 10.1 Sodium 135 L Potassium 3.9 Chloride 104 Carbon Dioxide 23 Anion Gap 8 BUN 20 Creatinine 0.70 Est Cr Clr Drug Dosing 61.9 eGFR 92.41 BUN/Creatinine Ratio 28.6 H Glucose 109 H POC Glucose 130 H 106 H Calcium 9.1 Phosphorus 3.8 Magnesium 1.9 11/18/24 11/18/24 11/18/24 11:26 16:29 19:58 WBC RBC Hgb Hct MCV MCH MCHC RDW Std Deviation RDW Coeff of Grey Plt Count MPV Sodium Potassium Chloride Carbon Dioxide Anion Gap BUN Creatinine Est Cr Clr Drug Dosing eGFR BUN/Creatinine Ratio Glucose POC Glucose 114 H 164 H 103 H Calcium Phosphorus Magnesium 11/19/24 11/19/24 11/19/24 06:38 07:26 11:18 WBC 7.53 RBC 3.98 L Hgb 12.9 Hct 37.1 MCV 93.2 MCH 32.4 MCHC 34.8 RDW Std Deviation 41.6 RDW Coeff of Grey 12.0 Plt Count 227 MPV 10.0 Sodium 139 Potassium 3.6 Chloride 107 Carbon Dioxide 22 Anion Gap 10 BUN 22 Creatinine 0.69 Est Cr Clr Drug Dosing 63.6 eGFR 92.73 BUN/Creatinine Ratio 31.9 H Glucose 105 H POC Glucose 97 97 Calcium 9.3 Phosphorus 3.6 Magnesium 1.8 11/19/24 16:17 WBC RBC Hgb Hct MCV MCH MCHC RDW Std Deviation RDW Coeff of Grey Plt Count MPV Sodium Potassium Chloride Carbon Dioxide Anion Gap BUN Creatinine Est Cr Clr Drug Dosing eGFR BUN/Creatinine Ratio Glucose POC Glucose 127 H Calcium Phosphorus Magnesium Diagnostic Findings Laboratory Results WBC 7.53 K/ul (4.8-10.8) 11/19/24 06:38 RBC 3.98 M/uL (4.20-5.40) L 11/19/24 06:38 Hgb 12.9 g/dl (12.0-16.0) 11/19/24 06:38 Hct 37.1 % (37.0-47.0) 11/19/24 06:38 MCV 93.2 fL (80.0-100.0) 11/19/24 06:38 MCH 32.4 pg (25.0-34.0) 11/19/24 06:38 MCHC 34.8 g/dL (32.0-36.0) 11/19/24 06:38 RDW Std Deviation 41.6 fL (36.4-46.3) 11/19/24 06:38 RDW Coeff of Grey 12.0 % (11.5-14.5) 11/19/24 06:38 Plt Count 227 K/uL (130-400) 11/19/24 06:38 MPV 10.0 fL (9.4-12.4) 11/19/24 06:38 Immature Gran % (Auto) 0.3 % 11/16/24 12:01 Neut % (Auto) 79.0 % 11/16/24 12:01 Lymph % (Auto) 10.4 % 11/16/24 12:01 [place] % (Auto) 10.0 % 11/16/24 12:01 Eos % (Auto) 0.1 % 11/16/24 12:01 Baso % (Auto) 0.2 % 11/16/24 12:01 Neut # (Auto) 10.28 K/uL (1.40-6.50) H 11/16/24 12:01 Lymph # (Auto) 1.36 K/uL (1.20-3.40) 11/16/24 12:01 [place] # (Auto) 1.30 K/uL (0.11-0.59) H 11/16/24 12:01 Eos # (Auto) 0.01 K/uL (0.00-0.50) 11/16/24 12:01 Baso # (Auto) 0.03 K/uL (0.00-0.20) 11/16/24 12:01 Immature Gran # (Auto) 0.04 K/uL (0.01-0.20) 11/16/24 12:01 Sodium 139 mmol/L (136-145) 11/19/24 06:38 Potassium 3.6 mmol/L (3.5-5.1) 11/19/24 06:38 Chloride 107 mmol/L (98-107) 11/19/24 06:38 Carbon Dioxide 22 mmol/L (21-32) 11/19/24 06:38 Anion Gap 10 (3-11) 11/19/24 06:38 BUN 22 mg/dl (6-23) 11/19/24 06:38 Creatinine 0.69 mg/dl (0.6-1.2) 11/19/24 06:38 Est Cr Clr Drug Dosing 63.6 ml/min 11/19/24 06:38 eGFR 92.73 11/19/24 06:38 BUN/Creatinine Ratio 31.9 (10-20) H 11/19/24 06:38 Glucose 105 mg/dl (70-99(Fasting)) H 11/19/24 06:38 POC Glucose 127 mg/dl (70-99) H 11/19/24 16:17 Estimat Average Glucose 114 mg/dl 11/17/24 05:40 Hemoglobin A1c 5.6 % (4.5-5.6) 11/17/24 05:40 Calcium 9.3 mg/dl (8.6-10.3) 11/19/24 06:38 Phosphorus 3.6 mg/dl (2.5-4.9) 11/19/24 06:38 Magnesium 1.8 mg/dl (1.7-2.4) 11/19/24 06:38 Total Bilirubin 0.5 mg/dl (0.2-1.0) 11/17/24 05:40 AST 34 U/L (13-39) 11/17/24 05:40 ALT 32 U/L (7-52) 11/17/24 05:40 Alkaline Phosphatase 102 U/L (34-104) 11/17/24 05:40 Troponin I High Sens 12.6 pg/ml (0-14) 11/16/24 16:59 Total Protein 7.0 gm/dl (6.0-8.3) 11/17/24 05:40 Albumin 3.8 gm/dl (3.4-5.0) 11/17/24 05:40 Globulin 3.2 gm/dl (2.5-4.0) 11/17/24 05:40 Albumin/Globulin Ratio 1.2 (0.9-2) 11/17/24 05:40 Triglycerides 121 mg/dl (0-150) 11/17/24 05:40 Cholesterol 178 mg/dl (0-200) 11/17/24 05:40 LDL Cholesterol, Calc 109 mg/dl 11/17/24 05:40 VLDL Cholesterol, Calc 24 mg/dl (0-30) 11/17/24 05:40 HDL Cholesterol 45 mg/dl 11/17/24 05:40 Cholesterol/HDL Ratio 4.0 (0-5) 11/17/24 05:40 TSH 0.598 uIu/ml (0.300-4.500) 11/17/24 05:40 Urine Color Yellow 11/16/24 Unknown Urine Appearance Clear (Clear) 11/16/24 Unknown Urine pH 7.0 (4.5-7.5) 11/16/24 Unknown Ur Specific [place] 1.013 (1.000-1.030) 11/16/24 Unknown Urine Protein Trace (Negative) H 11/16/24 Unknown Urine Glucose (UA) Negative (Negative) 11/16/24 Unknown Urine Ketones Negative (Negative) 11/16/24 Unknown Urine Blood Negative (Negative) 11/16/24 Unknown Urine Nitrite Negative (Negative) 11/16/24 Unknown Urine Bilirubin Negative (Negative) 11/16/24 Unknown Urine Urobilinogen Negative (Negative) 11/16/24 Unknown Ur Leukocyte Esterase Negative (Negative) 11/16/24 Unknown Urine WBC (Auto) 0-5 /hpf (0-5) 11/16/24 Unknown Urine RBC (Auto) 0-2 /hpf (0-2) 11/16/24 Unknown U Hyaline Cast (Auto) 0-2 /lpf (0-2) 11/16/24 Unknown U Epithel Cells (Auto) 0-2 /hpf (0-2) 11/16/24 Unknown Urine Bacteria (Auto) None Seen (None Seen) 11/16/24 Unknown Urine Comment 11/16/24 Unknown Adenovirus (PCR) Not Detected (NotDetected) 11/16/24 Unknown B. pertussis DNA (PCR) Not Detected (NotDetected) 11/16/24 Unknown B.parapertussis DNA PCR Not Detected (NotDetected) 11/16/24 Unknown C. pneumoniae DNA (PCR) Not Detected (NotDetected) 11/16/24 Unknown Coronavirus OC43 (PCR) Not Detected (NotDetected) 11/16/24 Unknown Coronavirus HKU1 (PCR) Not Detected (NotDetected) 11/16/24 Unknown Coronavirus 229E (PCR) Not Detected (NotDetected) 11/16/24 Unknown SARS-CoV-2 (PCR) Not Detected (NotDetected) 11/16/24 Unknown Coronavirus NL63 (PCR) Not Detected (NotDetected) 11/16/24 Unknown Human Metapneumovir PCR Not Detected (NotDetected) 11/16/24 Unknown Influenza Type A (PCR) Not Detected (NotDetected) 11/16/24 Unknown Influenza Type B (PCR) Not Detected (NotDetected) 11/16/24 Unknown M. pneumoniae (PCR) Not Detected (NotDetected) 11/16/24 Unknown Parainfluenza 1 (PCR) Not Detected (NotDetected) 11/16/24 Unknown Parainfluenza 2 (PCR) Not Detected (NotDetected) 11/16/24 Unknown Parainfluenza 3 (PCR) Not Detected (NotDetected) 11/16/24 Unknown Parainfluenza 4 (PCR) Not Detected (NotDetected) 11/16/24 Unknown RSV (PCR) Not Detected (NotDetected) 11/16/24 Unknown Entero/Rhino (PCR) Not Detected (NotDetected) 11/16/24 Unknown Impressions Chest X-Ray 11/16/24 12:21 XR chest 1V portable CLINICAL HISTORY: HTN COMPARISON STUDY: None FINDINGS: Heart size and pulmonary vasculature are normal. Lungs are hyperexpanded. No consolidation or pleural effusion seen. No pneumothorax. IMPRESSION: No acute findings. ACT 112: Negative or not required by law. Electronically signed by: Ba Mann M.D. 11/16/2024 12:[address] 11/16/24 12:21 CT head/brain wo con CLINICAL HISTORY: 69 years-old Female with Unsteady gait. TECHNIQUE: Multiple axial CT images of the head were obtained without contrast. A dose lowering technique was utilized adhering to the principles of ALARA. CT DOSE: 703.85 mGy.cm COMPARISON: None. FINDINGS: No acute intracranial hemorrhage, midline shift, intracranial mass, hydrocephalus, territorial ischemia or abnormal extra-axial collection. Involutional changes with white matter hypodensities suggestive of chronic m icrovascular ischemic disease. Study is mildly motion degraded. Age- indeterminate small lacunar infarct of the left thalamus, image 15 series 2. Chronic infarct versus prominent perivascular space involving the right basal ganglia on image 14 series 2. The calvarium is intact. The paranasal sinuses, mastoid air cells, and middle ear cavities are clear. IMPRESSION: 1. No definite acute intracranial abnormality identified. 2. Age indeterminate subcentimeter left thalamic lacunar infarct. ACT 112: Negative or not required by law. The above report was generated using voice recognition software. It may contain grammatical, syntax or spelling errors. Electronically signed by: Jose Manuel Will M.D. 11/16/2024 1:14 PM Brain MRI 11/16/24 17:36 CR Exam(s): MRI HEAD Without Contrast EXAM: MR Head Without Intravenous Contrast CLINICAL HISTORY: Age indeterminate CVA on head CT. TECHNIQUE: Magnetic resonance images of the head/brain without intravenous contrast in multiple planes. COMPARISON: CT Brain 11-16-2024. FINDINGS: Brain: Age-appropriate central and peripheral atrophy. 6 x 8 mm acute nonhemorrhagic left thalamic lacunar infarct without mass effect. Mild degree of supratentorial periventricular and subcortical white matter hyperintensities on FLAIR and T2-weighted images. No acute hemorrhage or abnormal extra-axial fluid collection. Ventricles: No midline shift. No ventriculomegaly. Bones/joints: Unremarkable. No acute fracture. Sinuses: Unremarkable as visualized. No acute sinusitis. Mastoid air cells: Unremarkable as visualized. No mastoid effusion. Orbits: Unremarkable as visualized. IMPRESSION: 1. Acute nonhemorrhagic left thalamic lacunar infarct without mass effect 2. Nonspecific white matter changes most commonly seen with small vessel disease. Communications: Call Doctor Stroke Electronically signed by: Gokul Gray M.D. 11/16/24 22:18 PM Head CTA 11/17/24 12:15 CT angio head w con CLINICAL HISTORY: 69 years-old Female with cva. Acute stroke like symptoms COMPARISON STUDY: Head CT 11/16/2024, brain MR 11/16/2024. TECHNIQUE: Following the IV administration of 120 cc of Optiray, CT angiogram of the brain was performed from the skull base to the vertex. Images are reviewed in the axial, sagittal, and coronal planes. 3-D MIPS images are created and assessed. IV contrast was administered without complication. All measurements were obtained according to NASCET criteria. A dose lowering technique was utilized adhering to the principles of ALARA. FINDINGS: CT ANGIOGRAM OF THE BRAIN: The imaged bilateral internal carotid arteries are patent. Peripherally calcified 6 x 3 x 4 mm saccular aneurysm is noted involving the supraclinoid segment of the left ICA on image 117 series 3 without rupture. 3 mm saccular aneurysm of the right carotid terminus. Mild multifocal stenoses of the middle cerebral arteries. There is a short segment high-grade stenosis involving M2 branch of the right middle cerebral artery on image 118 series 3. Short segment intermediate grade stenosis of the left MCA on image 124. The anterior cerebral arteries are widely patent. Vertebral venous sinuses are patent. The vertebral and basilar arteries are patent. Multifocal moderate to high-grade stenoses within the bilateral posterior cerebral arteries. No definite arterial occlusion identified. The acute left thalamic lacunar infarct is better seen on yesterday's MRI. Involutional changes with chronic microvascular ischemic disease. IMPRESSION: 1. Acute left thalamic lacunar infarct better seen on yesterday's MRI. 2. Multifocal intermediate to high-grade stenoses of the posterior cerebral arteries. 3. 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 ACT 112: Negative or not required by law. The above report was generated using voice recognition software. It may contain grammatical, syntax or spelling errors. Electronically signed by: Jose Manuel Will M.D. 11/17/2024 1:44 PM Neck CTA 11/17/24 12:27 CT ANGIOGRAPHY OF THE NECK WITH CONTRAST CLINICAL HISTORY: Cerebrovascular accident. COMPARISON STUDY: No previous studies for comparison. Technique: CT angiography of the carotid and vertebral arteries was obtained using Optiray and 3D reconstruction on an independent workstation. NASCET criteria was utilized. Automated exposure control was utilized for the study. A dose lowering technique was utilized adhering to the principles of ALARA. CT DOSE: 439.74 mGy.cm Findings: Visualized lung apices are unremarkable. There is no cervical lymphadenopathy. There are no cervical spine fractures. There is mild plaque within the proximal right internal carotid artery without stenosis. There is moderate calcified plaque at the left carotid bifurcation. This results in 40% stenosis of the proximal left internal carotid artery. The vessel measures 2.3 mm at site of narrowing and 4 mm distally. Mild irregularity of the distal cervical internal carotid arteries is likely due to atherosclerosis. There is no aneurysm or dissection within the neck. The left vertebral artery is dominant. The CTA of the head will be reported separately. IMPRESSION: 1. 40% stenosis within the proximal left internal carotid artery due to calcified atherosclerotic plaque. 2. No aneurysm or dissection within the neck. ACT 112: Negative or not required by law. Electronically signed by: Anders Ma M.D. 11/17/2024 1:36 PM Medications Administered Home Medications Medication Instructions Recorded Confirmed Last Taken abatacept 125 mg/mL subcutaneous 125 mg subcut WK 08/25/24 11/16/24 11/15/24 auto-injector ([employer]) duloxetine 60 mg capsule,delayed 60 mg PO DAILY 08/25/24 11/16/24 11/16/24 release losartan 25 mg tablet 25 mg PO DAILY 08/25/24 11/16/24 11/16/24 metformin 500 mg tablet,extended 500 mg PO QDL 08/25/24 11/16/24 11/15/24 release 24 hr metoprolol tartrate 50 mg tablet 50 mg PO BID 08/25/24 11/16/24 11/16/24 08:00 pantoprazole 40 mg tablet,delayed 40 mg PO QDL 08/25/24 11/16/24 11/15/24 release prednisone 5 mg tablet 5 mg PO QDL 08/25/24 11/16/24 11/15/24 Active Medications Generic Name Dose Route Start Last Admin Trade Name Freq PRN Reason Stop Dose Admin Amlodipine Besylate 10 mg 11/19/24 09:00 11/19/24 08:16 Amlodipine Besylate 5 Mg Tab PO 12/19/24 08:59 10 mg QAM WEN Administration Aspirin 81 mg 11/17/24 14:45 11/19/24 08:16 Aspirin 81 Mg Ectab PO 12/17/24 14:44 81 mg DAILY WEN Administration Atorvastatin Calcium 40 mg 11/17/24 12:15 11/19/24 08:15 Atorvastatin 40 Mg Tab PO 12/17/24 12:14 40 mg QAM WEN Administration Clopidogrel Bisulfate 75 mg 11/17/24 17:00 11/19/24 08:16 Clopidogrel Bisulfate 75 Mg Tab PO 12/17/24 16:59 75 mg QAM WEN Administration Duloxetine HCl 60 mg 11/17/24 09:00 11/19/24 08:16 Duloxetine Hcl 60 Mg Cap PO 12/17/24 08:59 60 mg DAILY WEN Administration Folic Acid 1 mg 11/17/24 09:00 11/19/24 08:16 Folic Acid 1 Mg Tab PO 12/17/24 08:59 1 mg QAM WEN Administration Insulin Aspart 0 units 11/16/24 17:36 11/19/24 11:35 Insulin Aspart Per Unit Charge SC 12/16/24 17:35 Not Given ACHS WEN Labetalol HCl 10 mg 11/16/24 22:23 11/19/24 03:28 Labetalol Hcl Iv 5 Mg/Ml 20ml IV 12/16/24 22:22 10 mg Q4H PRN Administration Hypertension Losartan Potassium 50 mg 11/18/24 21:00 11/19/24 08:19 Losartan Potassium 50 Mg Tab PO 12/18/24 20:59 50 mg BID WEN Administration Magnesium Hydroxide 30 ml 11/16/24 17:36 11/19/24 15:16 Magnesium Hydroxide Susp 30 Ml Udc PO 12/16/24 17:35 30 ml Q12H PRN Administration Constipation Metoprolol Tartrate 50 mg 11/17/24 09:00 11/19/24 08:16 Metoprolol Tartrate 50 Mg Tab PO 12/17/24 08:59 50 mg BID WEN Administration Multivitamins 1 tab 11/17/24 09:00 11/19/24 08:17 Multivitamin Tab PO 12/17/24 08:59 1 tab QAM WEN Administration Pantoprazole Sodium 40 mg 11/17/24 11:30 11/19/24 11:50 Pantoprazole 40 Mg Tab PO 12/17/24 11:29 40 mg QDL WEN Administration Polyethylene Glycol 17 gm 11/16/24 17:36 11/19/24 15:16 Polyethylene (Miralax) 17 Gm Pack PO 12/16/24 17:35 17 gm DAILY PRN Administration Constipation Prednisone 5 mg 11/17/24 11:30 11/19/24 11:50 Prednisone 5 Mg Tab PO 12/17/24 11:29 5 mg QDL WEN Administration Thiamine HCl 100 mg 11/17/24 09:00 11/19/24 08:16 Thiamine Hcl 100 Mg Tab PO 12/17/24 08:59 100 mg QAM WEN Administration PG Care Time/CCT Total # of Minutes Spent Total Time Spent with Patient: Total time spent is greater than 50% in coordination of care (as documented) at patient's floor/unit and/or counseling patient: Coding Level of Care Code 68413 SUB INP/OBS CARE 3/50MIN Diagnoses Hypertensive emergency I16.1 Left thalamic infarction I63.81
[2024-11-20] MEDS: NIFEdipine EXTENDED REL 30 MG TABCR PO SCH (08:26)
--- NOTE | 2024-11-20 10:12 | Cardiology Progress Note ---
Date of Service November 20, 2024 Assessment & Plan (1) Hypertensive emergency: (2) Left thalamic infarction: Plan Assessment: 69 year old female admitted for hypertensive emergency despite medication compliance. CT and confirmed MRI imaging show acute Left Thalamic infarction. Cardiology consulted for further assessment/recommendations. 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 Continue ASA and Plavix. Echocardiogram with negative bubble study. Recommend transitioning back to amlodipine 10 mg daily from nifedipine as nifedipine causes rebound tachycardia. Permissive hypertension allowed given CVA and cerebral artery stenosis. Continue losartan 50 mg BID Continue metoprolol tartrate - Could consider transitioning to carvedilol for additional BP support. Cont Statin BP uncontrolled post PT this morning. Recheck after meds and resting. Remains NSR on telemetry. No afib noted May need rehab. Needs f/u with neurosurgery Case discussed with Dr. Joe I spent a total of 35 minutes on the date of service in preparation, delivery, and documentation of the care provided to this patient, excluding any time spent in the performance of separately billed services. Carolyne Mariscal PA-C Department of Cardiology, [facility] This chart was completed in part utilizing Speech Voice Recognition Software. Grammatical errors, random word insertions, pronoun errors, and incomplete sentences are an occasional consequence of this system due to software limi tations, ambient noise, and hardware issues. Any formal questions or concerns about the content, text, or information contained within the body of this dictation should be directly addressed to the provider for clarification. Admission and Anticipated Discharge Date Admission Date: November 17, 2024 Supervising Physician Co-Signing Physician Notes Patient was seen and personally examined. Full assessment and plan as outlined by advanced provider as above. Care and management discussed and personally endorsed 69-year-old female admitted with thalamic stroke, hypertensive urgency Still with labile blood pressures. Medication adjustments as already begun. Will transition metoprolol to carvedilol for further hypertension control. Continue maximum dose of losartan, amlodipine as ordered Subjective Patient resting in bed. Just finished ambulating in hallways with PT. Notes fatigue and SOB with activity. No chest pain. No dizziness. No headache. Hypertensive upon finishing therapy. BP > 200. She received meds this morning, just prior to PT. Review of Systems Review of Systems: All systems reviewed & are unremarkable except as noted in HPI & below Physical Exam Constitutional: well developed and well nourished; no acute distress and not ill appearing Neck: normal visual inspection and trachea midline Respiratory: normal respiratory effort, lungs clear to auscultation no cough Auscultation: no crackles, no rales, no rhonchi and no wheezes Cardiovascular: Rate/Rhythm: regular rate and regular rhythm Heart Sounds: normal S1 and normal S2; no murmur Vessels: dorsalis pedis pulses present; no JVD Extremities: no edema Skin: no rashes, warm and dry Psychiatric: A+Ox3, euthymic affect Results & Data Vital Signs (Past 12 Hours) Vital Signs Temp Pulse Pulse Resp BP BP Pulse Ox 11/20/24 08:00 11/20/24 08:00 63 11/20/24 07:35 36.8 C 69 19 177/83 H 96 11/20/24 04:00 36.6 C 60 24 184/80 H 98 11/20/24 00:00 11/19/24 23:00 36.8 C 67 22 168/67 H 96 Pulse Ox O2 Del Method O2 Del Method 11/20/24 08:00 96 Room Air 11/20/24 08:00 11/20/24 07:35 Room Air 11/20/24 04:00 Room Air 11/20/24 00:00 96 Room Air 11/19/24 23:00 Room Air Laboratory Results Intake and Output 11/19/24 11/20/24 11/20/24 22:59 06:59 14:59 Other: # Unmeasured Voids 1 1 Weight 70.4 kg Diagnostic Findings Telemetry reviewed: NSR in the 70-90's. No arrhythmias Echo completed earlier this admission: Medications Administered Current Inpatient Medications Acetaminophen (Acetaminophen 325 Mg Tab) 650 mg PO Q4H PRN PRN Reason: Pain or Fever Stop: 12/16/24 17:35 Amlodipine Besylate (Amlodipine Besylate 5 Mg Tab) 10 mg PO QAM [facility] Stop: 12/21/24 08:59 Aspirin (Aspirin 81 Mg Ectab) 81 mg PO DAILY [facility] Stop: 12/17/24 14:44 Last Admin: 11/20/24 08:24 Dose: 81 mg Atorvastatin Calcium (Atorvastatin 40 Mg Tab) 40 mg PO QAM [facility] Stop: 12/17/24 12:14 Last Admin: 11/20/24 08:24 Dose: 40 mg Clopidogrel Bisulfate (Clopidogrel Bisulfate 75 Mg Tab) 75 mg PO QAM [facility] Stop: 12/17/24 16:59 Last Admin: 11/20/24 08:23 Dose: 75 mg Dextrose (Dextrose 50% 50 Ml Syringe) 25 - 50 ml IV UD PRN; Protocol PRN Reason: Hypoglycemia Protocol Stop: 12/16/24 17:35 Duloxetine HCl (Duloxetine Hcl 60 Mg Cap) 60 mg PO DAILY [facility] Stop: 12/17/24 08:59 Last Admin: 11/20/24 08:22 Dose: 60 mg Folic Acid (Folic Acid 1 Mg Tab) [facility] [place] Stop: 12/17/24 08:59 Last Admin: 11/20/24 08:24 Dose: 1 mg Glucagon (Glucagon For Inj 1 Mg Vial) 1 mg SQ UD PRN; Protocol PRN Reason: Hypoglycemia Protocol Stop: 12/16/24 17:35 Glucose (Glucose 40% Gel 15 Gm Tube) 15 - 30 gm PO UD PRN; Protocol PRN Reason: Hypoglycemia Protocol Stop: 12/16/24 17:35 Glucose (Glucose 10 Tab/Tube) 4 - 8 tab PO UD PRN; Protocol PRN Reason: Hypoglycemia Protocol Stop: 12/16/24 17:35 Lorazepam 1 mg/ Syringe 1 mls @ 2 mls/min IV ONE PRN; Protocol PRN Reason: EtoH Withdrawal AWSS 6-10 Insulin Aspart (Insulin Aspart Per Unit Charge) 0 units SC ACHS [facility] Stop: 12/16/24 17:35 Last Admin: 11/20/24 08:21 Dose: Not Given Labetalol HCl (Labetalol Hcl Iv 5 Mg/Ml 20ml) 10 mg IV Q4H PRN PRN Reason: Hypertension Stop: 12/16/24 22:22 Last Admin: 11/19/24 03:28 Dose: 10 mg Losartan Potassium (Losartan Potassium 50 Mg Tab) 50 mg PO BID [facility] Stop: 12/18/24 20:59 Last Admin: 11/20/24 08:23 Dose: 50 mg Magnesium Hydroxide (Magnesium Hydroxide Susp 30 Ml Udc) 30 ml PO Q12H PRN PRN Reason: Constipation Stop: 12/16/24 17:35 Last Admin: 11/19/24 15:16 Dose: 30 ml Metoprolol Tartrate (Metoprolol Tartrate 50 Mg Tab) 50 mg PO BID [facility] Stop: 12/17/24 08:59 Last Admin: 11/20/24 08:23 Dose: 50 mg Miscellaneous (Carbohydrates For Hypoglycemia ) 15 - 30 gm PO UD PRN PRN Reason: Hypoglycemia Protocol Stop: 12/16/24 17:35 Miscellaneous Information (Pharmacist Discharge Med Rec Consult) 1 each N/A UD PRN PRN Reason: Consult Stop: 12/16/24 17:35 Multivitamins (Multivitamin Tab) 1 tab [facility] [place] Stop: 12/17/24 08:59 Last Admin: 11/20/24 08:22 Dose: 1 tab Ondansetron HCl (Ondansetron Inj 2 Mg/Ml 2 Ml Vial) 4 mg IV Q6H PRN PRN Reason: Nausea Stop: 12/16/24 17:35 Pantoprazole Sodium (Pantoprazole 40 Mg Tab) 40 mg PO QDL [facility] Stop: 12/17/24 11:29 Last Admin: 11/19/24 11:50 Dose: 40 mg Polyethylene Glycol (Polyethylene (Miralax) 17 Gm Pack) 17 gm PO DAILY PRN PRN Reason: Constipation Stop: 12/16/24 17:35 Last Admin: 11/19/24 15:16 Dose: 17 gm Prednisone (Prednisone 5 Mg Tab) 5 mg PO QDL [facility] Stop: 12/17/24 11:29 Last Admin: 11/19/24 11:50 Dose: 5 mg Thiamine HCl (Thiamine Hcl 100 Mg Tab) 100 mg PO [facility] Stop: 12/17/24 08:59 Last Admin: 11/20/24 08:23 Dose: 100 mg PG Care Time/CCT Total # of Minutes Spent Total Time Spent with Patient: Total time spent is greater than 50% in coordination of care (as documented) at patient's floor/unit and/or counseling patient: 35 minutes Coding Level of Care Code 10656 SUB INP/OBS CARE 3/50MIN Diagnoses Hypertensive emergency I16.1 Left thalamic infarction I63.81
[2024-11-20] MEDS: POTASSIUM CHLORIDE CRTAB 20 MEQ TABCR PO STA (13:19)
[2024-11-20] MEDS: MAGNESIUM OXIDE 400 MG TAB PO SCH (13:19)
--- NOTE | 2024-11-20 17:21 | Hospitalist Progress Note ---
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 No recent changes to home antihypertensive regimen. SBP persistently in the 170s-220s over the past 2 weeks despite compliance with home antihypertensive regimen. Experiences coinciding dizziness, floaters in vision, unsteady gait, centralized chest pressure, SOB and lower lip tingling with this. In the ED around 15:30, patient's BP was 244/112. Patient was symptomatic with this. Described centralized chest pressure, SOB and lower lip tingling. Hypertensive emergency History as per above. No focal deficits appreciated on exam. ? acute vs subacute vs chronic left thalamic infarct as below. Troponin x 1 negative, will repeat. EKG personally reviewed: lots of artifact, possible ST depression in lateral leads. Repeat EKG with chest pain PRN. Case discussed between undersigned attending physician and ICU physician on- call, Dr. Martin. -Initial consideration was made for possible IV esmolol or nicardipine drip. -Holding off on initiation of antihypertensive drip for now. Advised to trial additional doses of Lopressor 50mg, losartan 50mg. Continued Lopressor 50mg bid, losartan 50mg daily, amlodipine 5 mg daily Cardiology consulted 11/18 BP elevated yesterday throughout the day. This AM BP 160/65. Cont. to closely monitor 11/19 Amlodipine increased to 10 mg daily,losartan 50 mg increased to BID yesterday. Pt still required prn labetalol and hydralazine overnight. Cardiology updated as well - changing meds- to procardia 11/10 Changing meds to amlodipine and metoprolol to coreg Left thalamic infarction, lacunar infarct of the left thalamus Neurology consulted and discussed with - Breonna Oneal presents with an incidentally discovered small left thalamic stroke in the setting of hypertension. Hypertension likely secondary to the acute stroke though is an independent risk factor as this is a small vessel lacunar stroke. - CT angiography with contrast of the head and neck to evaluate cerebral vasculature. 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 Would also refer to neurosurgery for the noted aneurysms - specifically the R ICA terminus aneurysm. - Continue aspirin for secondary stroke prevention. - Initiate statin therapy to reduce LDL from 109 to <70. --> lipitor 40 started - Medicine team to optimize antihypertensive regimen. - Neurology follow-up in 4-6 weeks Current hemoglobin A1c 5.6%, lipid panel - LDL 109 Leukocytosis, resolved Suspect reactive elevation in setting of above. No clear signs or symptoms of infection. WBC now normalized DMII Hold metformin, SSI protocol while admitted. Follow BSG checks ACHS, A1c 5.6% Tobacco use disorder Smokes 1ppd, has been smoking since around age 11. Declined need for nicotine patch at this time. Cessation encouraged. Alcohol use Consumes approximately 4 glasses of wine/night x several years. No prior history of alcohol withdrawal or alcohol withdrawal seizures. AWSS protocol with PRN IV Ativan, monitor AWSS. Rheumatoid arthritis Chronic bilateral hand weakness which is unchanged from baseline. BUE strength 5/5 on exam. On prednisone 5mg daily (on this for over 3 years), can continue. Also on Orencia [employer]. Fibromyalgia Recently had epidural injections done this past Wednesday, reports done in mid back. Continue duloxetine. Hepatic steatosis LFTs appear to be around baseline, continue to monitor. GERD Continue PPI. DVT Prophylaxis: SCDs Code Status: FULL CODE PCP: Micaela Kelley MD Disposition: PCU Admission and Anticipated Discharge Date Admission Date: November 17, 2024 Subjective Pt seen in follow up, uncontrolled hypertension, also found to have an acute cva Overall pt is feeling well. Denies any chest pain, or headache or change in vision. Denies any shortness of breath. No fevers, chills Reports hx of ongoing chronic pain issues, was seen recently at pain clinic. Also follows w/ Dr. De Luna for RA. Neurology consulted and discussed with - CTA head and neck obtained, cont. ASA + plavix, will need neurosurgery referral - pt and her aware (pt's updated previously over the phone) BP still quite elevated but improved from admission. Cardiology consulted to help w/ uncontrolled BP -> changing meds today to coreg and amlodipine Review of Systems Review of Systems: All systems reviewed & are unremarkable except as noted in Subjective Physical Exam Physical Exam: General: WD/WN, Elderly F in NAD, A&Ox3, conversing appropriately HEENT: Normocephalic, atraumatic, external ear and nose normal Respiratory: Normal respiratory effort, CTAB Cardiovascular: RRR, no BLE edema Abdomen/GI: Normal bowel sounds, soft, nontender to palpation in all quadrants Neurologic: awake, alert, no facial asymmetry, speech fluent, No focal deficits appreciated, extremity motor strength intact, actively moves all extremities Results & Data Results & Data Vital Signs (Past 12 Hours) Vital Signs Temp Pulse Pulse Resp BP Pulse Ox Pulse Ox 11/20/24 16:51 36.5 C 68 19 160/81 H 97 11/20/24 13:42 66 11/20/24 10:57 36.5 C 57 L 14 169/75 H 97 11/20/24 10:13 158/69 H 11/20/24 08:00 96 11/20/24 08:00 63 11/20/24 07:35 36.8 C 69 19 177/83 H 96 O2 Del Method O2 Del Method 11/20/24 16:51 Room Air 11/20/24 13:42 11/20/24 10:57 Room Air 11/20/24 10:13 11/20/24 08:00 Room Air 11/20/24 08:00 11/20/24 07:35 Room Air Laboratory Results 11/20/24 11/20/24 11/20/24 Range/Units 16:12 11:13 07:39 POC Glucose 130 H 105 H 93 (70-99) mg/dl 11/19/24 Range/Units 20:28 POC Glucose 127 H (70-99) mg/dl Medications Administered Current Inpatient Medications Acetaminophen (Acetaminophen 325 Mg Tab) 650 mg PO Q4H PRN PRN Reason: Pain or Fever Stop: 12/16/24 17:35 Amlodipine Besylate (Amlodipine Besylate 5 Mg Tab) [facility] [place] Stop: 12/21/24 08:59 Aspirin (Aspirin 81 Mg Ectab) 81 mg PO DAILY [facility] Stop: 12/17/24 14:44 Last Admin: 11/20/24 08:24 Dose: 81 mg Atorvastatin Calcium (Atorvastatin 40 Mg Tab) 40 mg PO QAM [facility] Stop: 12/17/24 12:14 Last Admin: 11/20/24 08:24 Dose: 40 mg Carvedilol (Carvedilol 12.5 Mg Tab) 12.5 mg PO BIDM [facility] Stop: 12/20/24 16:59 Last Admin: 11/20/24 16:55 Dose: 12.5 mg Clopidogrel Bisulfate (Clopidogrel Bisulfate 75 Mg Tab) 75 mg PO QAM [facility] Stop: 12/17/24 16:59 Last Admin: 11/20/24 08:23 Dose: 75 mg Dextrose (Dextrose 50% 50 Ml Syringe) 25 - 50 ml IV UD PRN; Protocol PRN Reason: Hypoglycemia Protocol Stop: 12/16/24 17:35 Duloxetine HCl (Duloxetine Hcl 60 Mg Cap) 60 mg PO DAILY [facility] Stop: 12/17/24 08:59 Last Admin: 11/20/24 08:22 Dose: 60 mg Folic Acid (Folic Acid 1 Mg Tab) [facility] [place] Stop: 12/17/24 08:59 Last Admin: 11/20/24 08:24 Dose: 1 mg Glucagon (Glucagon For Inj 1 Mg Vial) 1 mg SQ UD PRN; Protocol PRN Reason: Hypoglycemia Protocol Stop: 12/16/24 17:35 Glucose (Glucose 40% Gel 15 Gm Tube) 15 - 30 gm PO UD PRN; Protocol PRN Reason: Hypoglycemia Protocol Stop: 12/16/24 17:35 Glucose (Glucose 10 Tab/Tube) 4 - 8 tab PO UD PRN; Protocol PRN Reason: Hypoglycemia Protocol Stop: 12/16/24 17:35 Lorazepam 1 mg/ Syringe 1 mls @ 2 mls/min IV ONE PRN; Protocol PRN Reason: EtoH Withdrawal AWSS 6-10 Insulin Aspart (Insulin Aspart Per Unit Charge) 0 units SC ACHS [facility] Stop: 12/16/24 17:35 Last Admin: 11/20/24 16:34 Dose: Not Given Labetalol HCl (Labetalol Hcl Iv 5 Mg/Ml 20ml) 10 mg IV Q4H PRN PRN Reason: Hypertension Stop: 12/16/24 22:22 Last Admin: 11/19/24 03:28 Dose: 10 mg Losartan Potassium (Losartan Potassium 50 Mg Tab) 50 mg PO BID [facility] Stop: 12/18/24 20:59 Last Admin: 11/20/24 08:23 Dose: 50 mg Magnesium Hydroxide (Magnesium Hydroxide Susp 30 Ml Udc) 30 ml PO Q12H PRN PRN Reason: Constipation Stop: 12/16/24 17:35 Last Admin: 11/19/24 15:16 Dose: 30 ml Magnesium Oxide (Magnesium Oxide 400 Mg Tab) 400 mg PO [facility] Stop: 12/20/24 13:14 Last Admin: 11/20/24 13:19 Dose: 400 mg Miscellaneous (Carbohydrates For Hypoglycemia ) 15 - 30 gm PO UD PRN PRN Reason: Hypoglycemia Protocol Stop: 12/16/24 17:35 Miscellaneous Information (Pharmacist Discharge Med Rec Consult) 1 each N/A UD PRN PRN Reason: Consult Stop: 12/16/24 17:35 Multivitamins (Multivitamin Tab) 1 tab [facility] [place] Stop: 12/17/24 08:59 Last Admin: 11/20/24 08:22 Dose: 1 tab Ondansetron HCl (Ondansetron Inj 2 Mg/Ml 2 Ml Vial) 4 mg IV Q6H PRN PRN Reason: Nausea Stop: 12/16/24 17:35 Pantoprazole Sodium (Pantoprazole 40 Mg Tab) 40 mg PO QDL [facility] Stop: 12/17/24 11:29 Last Admin: 11/20/24 11:26 Dose: 40 mg Polyethylene Glycol (Polyethylene (Miralax) 17 Gm Pack) 17 gm PO DAILY PRN PRN Reason: Constipation Stop: 12/16/24 17:35 Last Admin: 11/20/24 11:35 Dose: 17 gm Prednisone (Prednisone 5 Mg Tab) 5 mg PO QDL [facility] Stop: 12/17/24 11:29 Last Admin: 11/20/24 11:26 Dose: 5 mg Thiamine HCl (Thiamine Hcl 100 Mg Tab) 100 mg PO [facility] Stop: 12/17/24 08:59 Last Admin: 11/20/24 08:23 Dose: 100 mg
[2024-11-21 07:19] VITALS: O2SAT 97
--- NOTE | 2024-11-21 08:30 | Cardiology Progress Note ---
Date of Service November 21, 2024 Assessment & Plan (1) Hypertensive emergency: (2) Left thalamic infarction: Plan Assessment: 69 year old female admitted for hypertensive emergency despite medication compliance. CT and confirmed MRI imaging show acute Left Thalamic infarction. Cardiology consulted for further assessment/recommendations. 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 Continue ASA and Plavix. Echocardiogram with negative bubble study. Amlodipine resumed this morning Metoprolol transitioned to carvedilol 12.5 mg BID. HR acceptable. Titrate to 25 mg IF needed. Permissive hypertension allowed given CVA and cerebral artery stenosis. Continue losartan 50 mg BID Continue Statin Remains NSR on telemetry. No afib noted PT/OT recommended. May need rehab. Needs f/u with neurosurgery given cerebral artery stenosis and aneurysm of the internal carotids. Case discussed with Dr. Heath Durham spent a total of 30 minutes on the date of service in preparation, delivery, and documentation of the care provided to this patient, excluding any time spent in the performance of separately billed services. Carolyne Mariscal PA-C Department of Cardiology, [facility] This chart was completed in part utilizing Speech Voice Recognition Software. Grammatical errors, random word insertions, pronoun errors, and incomplete sentences are an occasional consequence of this system due to software limitations, ambient noise, and hardware issues. Any formal questions or concerns about the content, text, or information contained within the body of this dictation should be directly addressed to the provider for clarification. Admission and Anticipated Discharge Date Admission Date: November 17, 2024 Supervising Physician Co-Signing Physician Notes Patient was seen and personally examined. Full assessment and plan as outlined by advanced provider as above. Care and management discussed and personally endorsed 69-year-old female admitted with thalamic stroke, hypertensive urgency Plan as outlined above. Continue carvedilol as ordered Contact with further questions Will sign off Subjective Patient resting in bed comfortably. Denies acute complaints. She reports ambulating in hallways earlier without symptoms of fatigue, SOB or weakness. BP improving over the last 24 hours. No headache or dizziness. No neurological deficits. Review of Systems Review of Systems: All systems reviewed & are unremarkable except as noted in HPI & below Physical Exam Constitutional: well developed and well nourished; no acute distress and not ill appearing Neck: normal visual inspection and trachea midline Respiratory: normal respiratory effort, lungs clear to auscultation no cough Auscultation: no crackles, no rales, no rhonchi and no wheezes Cardiovascular: Rate/Rhythm: regular rate and regular rhythm Heart Sounds: normal S1 and normal S2; no murmur Vessels: dorsalis pedis pulses present; no JVD Extremities: no edema Skin: no rashes, warm and dry Psychiatric: A+Ox3, euthymic affect Results & Data Vital Signs (Past 12 Hours) Vital Signs Temp Pulse Pulse Resp BP Pulse Ox O2 Del Method 11/21/24 07:30 65 11/21/24 07:18 36.5 C 67 16 168/87 H 97 Room Air 11/21/24 04:00 36.8 C 73 18 175/67 H 96 Room Air 11/21/24 00:00 11/20/24 23:48 37.2 C 73 18 136/61 96 Room Air 11/20/24 21:43 Room Air 11/20/24 21:43 88 O2 Del Method 11/21/24 07:30 11/21/24 07:18 11/21/24 04:00 11/21/24 00:00 Room Air 11/20/24 23:48 11/20/24 21:43 11/20/24 21:43 Laboratory Results Intake and Output 11/20/24 11/21/24 11/21/24 22:59 06:59 14:59 Intake Total 120 / 700 100 / 700 Balance 120 / 700 100 / 700 Intake: Oral 120 / 700 100 / 700 Other: # Unmeasured Voids 2 Weight 69.9 kg Weight Measurement Method Built in [facility] Diagnostic Findings Telemetry reviewed: NSR, no arrhythmias Medications Administered Current Inpatient Medications Acetaminophen (Acetaminophen 325 Mg Tab) 650 mg PO Q4H PRN PRN Reason: Pain or Fever Stop: 12/16/24 17:35 Amlodipine Besylate (Amlodipine Besylate 5 Mg Tab) 10 mg PO QAM [facility] Stop: 12/21/24 08:59 Last Admin: 11/21/24 08:24 Dose: 10 mg Aspirin (Aspirin 81 Mg Ectab) 81 mg PO DAILY [facility] Stop: 12/17/24 14:44 Last Admin: 11/21/24 08:25 Dose: 81 mg Atorvastatin Calcium (Atorvastatin 40 Mg Tab) 40 mg PO QAM [facility] Stop: 12/17/24 12:14 Last Admin: 11/21/24 08:25 Dose: 40 mg Carvedilol (Carvedilol 12.5 Mg Tab) 12.5 mg PO BIDM [facility] Stop: 12/20/24 16:59 Last Admin: 11/21/24 08:24 Dose: 12.5 mg Clopidogrel Bisulfate (Clopidogrel Bisulfate 75 Mg Tab) 75 mg PO QAM [facility] Stop: 12/17/24 16:59 Last Admin: 11/21/24 08:25 Dose: 75 mg Dextrose (Dextrose 50% 50 Ml Syringe) 25 - 50 ml IV UD PRN; Protocol PRN Reason: Hypoglycemia Protocol Stop: 12/16/24 17:35 Duloxetine HCl (Duloxetine Hcl 60 Mg Cap) 60 mg PO DAILY [facility] Stop: 12/17/24 08:59 Last Admin: 11/21/24 08:25 Dose: 60 mg Folic Acid (Folic Acid 1 Mg Tab) 1 mg PO QAM [facility] Stop: 12/17/24 08:59 Last Admin: 11/21/24 09:26 Dose: 1 mg Glucagon (Glucagon For Inj 1 Mg Vial) 1 mg SQ UD PRN; Protocol PRN Reason: Hypoglycemia Protocol Stop: 12/16/24 17:35 Glucose (Glucose 40% Gel 15 Gm Tube) 15 - 30 gm PO UD PRN; Protocol PRN Reason: Hypoglycemia Protocol Stop: 12/16/24 17:35 Glucose (Glucose 10 Tab/Tube) 4 - 8 tab PO UD PRN; Protocol PRN Reason: Hypoglycemia Protocol Stop: 12/16/24 17:35 Lorazepam 1 mg/ Syringe 1 mls @ 2 mls/min IV ONE PRN; Protocol PRN Reason: EtoH Withdrawal AWSS 6-10 Insulin Aspart (Insulin Aspart Per Unit Charge) 0 units SC ACHS [facility] Stop: 12/16/24 17:35 Last Admin: 11/21/24 08:17 Dose: Not Given Labetalol HCl (Labetalol Hcl Iv 5 Mg/Ml 20ml) 10 mg IV Q4H PRN PRN Reason: Hypertension Stop: 12/16/24 22:22 Last Admin: 11/19/24 03:28 Dose: 10 mg Losartan Potassium (Losartan Potassium 50 Mg Tab) 50 mg PO BID [facility] Stop: 12/18/24 20:59 Last Admin: 11/21/24 08:25 Dose: 50 mg Magnesium Hydroxide (Magnesium Hydroxide Susp 30 Ml Udc) 30 ml PO Q12H PRN PRN Reason: Constipation Stop: 12/16/24 17:35 Last Admin: 11/19/24 15:16 Dose: 30 ml Magnesium Oxide (Magnesium Oxide 400 Mg Tab) 400 mg PO QAM [facility] Stop: 12/20/24 13:14 Last Admin: 11/21/24 08:24 Dose: 400 mg Miscellaneous (Carbohydrates For Hypoglycemia ) 15 - 30 gm PO UD PRN PRN Reason: Hypoglycemia Protocol Stop: 12/16/24 17:35 Miscellaneous Information (Pharmacist Discharge Med Rec Consult) 1 each N/A UD PRN PRN Reason: Consult Stop: 12/16/24 17:35 Multivitamins (Multivitamin Tab) 1 tab PO QAM [facility] Stop: 12/17/24 08:59 Last Admin: 11/21/24 08:26 Dose: 1 tab Ondansetron HCl (Ondansetron Inj 2 Mg/Ml 2 Ml Vial) 4 mg IV Q6H PRN PRN Reason: Nausea Stop: 12/16/24 17:35 Pantoprazole Sodium (Pantoprazole 40 Mg Tab) 40 mg PO QDL [facility] Stop: 12/17/24 11:29 Last Admin: 11/20/24 11:26 Dose: 40 mg Polyethylene Glycol (Polyethylene (Miralax) 17 Gm Pack) 17 gm PO DAILY PRN PRN Reason: Constipation Stop: 12/16/24 17:35 Last Admin: 11/21/24 09:29 Dose: 17 gm Prednisone (Prednisone 5 Mg Tab) 5 mg PO QDL [facility] Stop: 12/17/24 11:29 Last Admin: 11/20/24 11:26 Dose: 5 mg Thiamine HCl (Thiamine Hcl 100 Mg Tab) 100 mg PO QAM [facility] Stop: 12/17/24 08:59 Last Admin: 11/21/24 08:25 Dose: 100 mg PG Care Time/CCT Total # of Minutes Spent Total Time Spent with Patient: Total time spent is greater than 50% in coordination of care (as documented) at patient's floor/unit and/or counseling patient: 30 minutes Coding Level of Care Code 17314 SUB INP/OBS CARE 350MIN Diagnoses Hypertensive emergency I16.1 Left thalamic infarction I63.81
[2024-11-21 11:12] VITALS: RESP 23; TEMP 97.6
[2024-11-21] MEDS ORDERED: STROKE PATIENT DISCHARGE STA (12:43)
--- NOTE | 2024-11-21 12:52 | Discharge Summary ---
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 History obtained from the patient, patient's at bedside, discussion with ED provider and associated chart review. Uncontrolled HTN for the last 2 weeks. 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 No recent changes to antihypertensive regimen. Prior to the past 2 weeks, patient states her BP was "well-controlled." Has been checking BP at home. SBP has been persistently in the 170s-220s despite compliance with her current antihypertensive regimen. Had a solitary spell of dizziness when this all started 2 weeks ago. Lasted several hours. Had several falls during this time frame. Resolved spontaneously. No further bouts of isolated dizziness since then. Has occasionally had her right knee "lock up" on her over the last week which seems to make her gait unsteady at times. Denies any lower extremity weakness or paraesthesias. Has noticed some floaters in her vision occasionally over the last 2 weeks. And when her BP rises into the 200s systolic she experiences centralized chest pressure and SOB. Has chronic bilateral hand weakn ess from her RA which is unchanged from baseline. Denies any upper extremity paraesthesias. No observed speech or facial deficits per her . Has experienced some lower lip tingling since Wednesday. Had epidural spinal injections for her fibromyalgia on Wednesday, was noted to be hypertensive at that visit. Unsure what her BP was at that time. BP 163/86 upon arrival to ED. 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 Admits that her SBP was still in the 180s approximately 1hr after taking her normal antihypertensive doses this morning which is why she decided to take an additional 1/2 dose of her Lopressor. BP started to uptrend in ED, recorded BP 209/89 at 12:35. Was administered IV hydralazine 10mg at 13:11. BP downtrended slightly to 187/95 at 13:58 and then uptrended again to 221/104 at 14:45. At the time of my evaluation in the ED around 15:30, patient's BP was 244/112. Patient was symptomatic with this. Described centralized chest pressure, SOB and lower lip tingling. No focal deficits appreciate on exam. Admission Exam Per Admitting Provider General: Elderly F, sitting up in bed, A&Ox3, conversing appropriately at bedside HEENT: Normocephalic, atraumatic, external ear and nose normal, oropharynx normal Respiratory: Normal respiratory effort, CTAB Cardiovascular: RRR, normal peripheral pulses, no BLE edema Abdomen/GI: Normal bowel sounds, soft, nontender to palpation in all quadrants Neurologic: No focal deficits appreciated, extremity motor strength intact, actively moves all extremities Principal Diagnosis (1) Hypertensive emergency: (2) Left thalamic infarction: Discharge Exam General: WD/WN, Elderly F in NAD, A&Ox3, conversing appropriately HEENT: Normocephalic, atraumatic, external ear and nose normal Respiratory: Normal respiratory effort, CTAB Cardiovascular: RRR, no BLE edema Abdomen/GI: Normal bowel sounds, soft, nontender to palpation in all quadrants Neurologic: awake, alert, no facial asymmetry, speech fluent, No focal deficits appreciated, extremity motor strength intact, actively moves all extremities Discharge Data Allergies Allergy/AdvReac Type Severity Reaction Status Date / Time No Known Allergies Allergy Verified 11/16/24 14:54 Consultations 11/16/24 14:59 ED Decision to Admit Stat 11/16/24 17:36 Consult Neurology Routine 11/17/24 08:31 Consult Cardiology Routine Ordered Studies 11/16/24 12:21 CT head/brain wo con Stat FINDINGS: No acute intracranial hemorrhage, midline shift, intracranial mass, hydrocephalus, territorial ischemia or abnormal extra-axial collection. Involutional changes with white matter hypodensities suggestive of chronic microvascular ischemic disease. Study is mildly motion degraded. Age- indeterminate small lacunar infarct of the left thalamus, image 15 series 2. Chronic infarct versus prominent perivascular space involving the right basal ganglia on image 14 series 2. The calvarium is intact. The paranasal sinuses, mastoid air cells, and middle ear cavities are clear. IMPRESSION: 1. No definite acute intracranial abnormality identified. 2. Age indeterminate subcentimeter left thalamic lacunar infarct. 11/16/24 17:36 MR brain wo con Routine FINDINGS: Brain: Age-appropriate central and peripheral atrophy. 6 x 8 mm acute nonhemorrhagic left thalamic lacunar infarct without mass effect. Mild degree of supratentorial periventricular and subcortical white matter hyperintensities on FLAIR and T2-weighted images. No acute hemorrhage or abnormal extra-axial fluid collection. Ventricles: No midline shift. No ventriculomegaly. Bones/joints: Unremarkable. No acute fracture. Sinuses: Unremarkable as visualized. No acute sinusitis. Mastoid air cells: Unremarkable as visualized. No mastoid effusion. Orbits: Unremarkable as visualized. IMPRESSION: 1. Acute nonhemorrhagic left thalamic lacunar infarct without mass effect 2. Nonspecific white matter changes most commonly seen with small vessel disease. 11/17/24 12:15 CTA head w con [CT angio head w con] Urgent FINDINGS: CT ANGIOGRAM OF THE BRAIN: The imaged bilateral internal carotid arteries are patent. Peripherally calcified 6 x 3 x 4 mm saccular aneurysm is noted involving the supraclinoid segment of the left ICA on image 117 series 3 without rupture. 3 mm saccular ane urysm of the right carotid terminus. Mild multifocal stenoses of the middle cerebral arteries. There is a short segment high-grade stenosis involving M2 branch of the right middle cerebral artery on image 118 series 3. Short segment intermediate grade stenosis of the left MCA on image 124. The anterior cerebral arteries are widely patent. Vertebral venous sinuses are patent. The vertebral and basilar arteries are patent. Multifocal moderate to high-grade stenoses within the bilateral posterior cerebral arteries. No definite arterial occlusion identified. The acute left thalamic lacunar infarct is better seen on yesterday's MRI. Involutional changes with chronic microvascular ischemic disease. IMPRESSION: 1. Acute left thalamic lacunar infarct better seen on yesterday's MRI. 2. Multifocal intermediate to high-grade stenoses of the posterior cerebral arteries. 3. 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 11/17/24 12:27 CTA neck with con [CT angio neck with con] Urgent Findings: Visualized lung apices are unremarkable. There is no cervical lymphadenopathy. There are no cervical spine fractures. There is mild plaque within the proximal right internal carotid artery without stenosis. There is moderate calcified plaque at the left carotid bifurcation. This results in 40% stenosis of the proximal left internal carotid artery. The vessel measures 2.3 mm at site of narrowing and 4 mm distally. Mild irregularity of the distal cervical internal carotid arteries is likely due to atherosclerosis. There is no aneurysm or dissection within the neck. The left vertebral artery is dominant. The CTA of the head will be reported separately. IMPRESSION: 1. 40% stenosis within the proximal left internal carotid artery due to calcified atherosclerotic plaque. 2. No aneurysm or dissection within the neck. 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 No recent changes to home antihypertensive regimen. SBP persistently in the 170s-220s over the past 2 weeks despite compliance with home antihypertensive regimen. Experiences coinciding dizziness, floaters in vision, unsteady gait, centralized chest pressure, SOB and lower lip tingling with this. In the ED around 15:30, patient's BP was 244/112. Patient was symptomatic with this. Described centralized chest pressure, SOB and lower lip tingling. Hypertensive emergency History as per above. No focal deficits appreciated on exam. ? acute vs subacute vs chronic left thalamic infarct as below. Troponin x 1 negative, will repeat. EKG personally reviewed: lots of artifact, possible ST depression in lateral leads. Repeat EKG with chest pain PRN. Case discussed between undersigned attending physician and ICU physician on- call, Dr. Martin. -Initial consideration was made for possible IV esmolol or nicardipine drip. -Holding off on initiation of antihypertensive drip for now. Advised to trial additional doses of Lopressor 50mg, losartan 50mg. Continued Lopressor 50mg bid, losartan 50mg daily, amlodipine 5 mg daily Cardiology consulted 11/18 BP elevated yesterday throughout the day. This AM BP 160/65. Cont. to closely monitor 11/19 Amlodipine increased to 10 mg daily,losartan 50 mg increased to BID yesterday. Pt still required prn labetalol and hydralazine overnight. Cardiology updated as well - changing meds- to procardia 11/20 Changing meds to amlodipine and metoprolol to coreg 11/21 Pt's BP improved, feeling well. Plan to DC on adjusted dose of losartan, amlodipine, and carvedilol. Metoprolol was discontinued. Left thalamic infarction, lacunar infarct of the left thalamus Neurology consulted and discussed with - Breonna Oneal presents with an incidentally discovered small left thalamic stroke in the setting of hypertension. Hypertension likely secondary to the acute stroke though is an independent risk factor as this is a small vessel lacunar stroke. - CT angiography with contrast of the head and neck to evaluate cerebral vasculature. 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 Would also refer to neurosurgery for the noted aneurysms - specifically the R ICA terminus aneurysm. - Continue aspirin for secondary stroke prevention. - Initiate statin therapy to reduce LDL from 109 to <70. --> lipitor 40 started - Medicine team to optimize antihypertensive regimen. - Neurology follow-up in 4-6 weeks Current hemoglobin A1c 5.6%, lipid panel - LDL 109 Leukocytosis, resolved Suspect reactive elevation in setting of above. No clear signs or symptoms of infection. WBC now normalized DMII Hold metformin, SSI protocol while admitted. Follow BSG checks ACHS, A1c 5.6% Tobacco use disorder Smokes 1ppd, has been smoking since around age 11. Declined need for nicotine patch at this time. Cessation encouraged. Alcohol use Consumes approximately 4 glasses of wine/night x several years. No prior history of alcohol withdrawal or alcohol withdrawal seizures. AWSS protocol with PRN IV Ativan, monitor AWSS. Rheumatoid arthritis Chronic bilateral hand weakness which is unchanged from baseline. BUE strength 5/5 on exam. On prednisone 5mg daily (on this for over 3 years), can continue. 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 Fibromyalgia Recently had epidural injections done this past Wednesday, reports done in mid back. Continue duloxetine. Hepatic steatosis LFTs appear to be around baseline, continue to monitor. GERD Continue PPI. Total Time Total Time Spent Total Time Spent (In Minutes): 40 Discharge Plan Discharge Items Patient Disposition: Home - Self-Care Reason For Visit: HTN URGENCY, AGE INDETERMINATE CVA Discharge Diagnosis: (1) Hypertensive emergency: (2) Left thalamic infarction: Activity: Per Instructions section Non-emergency contact: Primary Care Provider, Joint Creaser and Neurologist Call non-emergency contact if: you have any medication questions and your symptoms worsen Follow-up/Referrals: Micaela Kelley MD [Primary Care Provider] - (Date & Time 11/27/2024 9:00 AM Alexys Fields CRNP [facility] ) Diet: Carb Consistent or DM2 and Heart Healthy Addtl Attending Provider Instructions: Follow up with primary care doctor within 1 week. The appointment with your primary care doctor was scheduled for you for November 27, 2024. Take aspirin and plavix daily. Take atorvastatin and follow up with neurology. You will also need to follow up with neurosurgery, as discussed. Take amlodipine, losartan and carvedilol as prescribed for your blood pressure. Stop taking metoprolol. Monitor your blood pressure at home and record your numbers. Discuss your numbers with your health care provider as your medications may need change. Pending Studies at Discharge: No Stand-Alone Forms: My [facility] [place], Smoking Cessation, Medications to Prevent Stroke Medications and DC Order Prescriptions: New clopidogrel 75 mg Tablet 75 mg PO QAM Qty: 30 0RF atorvastatin 40 mg Tablet 40 mg PO QAM Qty: 30 0RF carvedilol 12.5 mg Tablet 12.5 mg PO BIDM Qty: 30 0RF aspirin 81 mg Tablet,Delayed Release (Dr/Ec) 81 mg PO DAILY Qty: 30 0RF amlodipine 10 mg tablet 10 mg PO DAILY Qty: 30 0RF losartan 50 mg Tablet 50 mg PO BID Qty: 60 0RF thiamine HCl (vitamin B1) 100 mg Tablet 100 mg PO QAM Qty: 30 0RF folic acid 1 mg Tablet 1 mg PO QAM Qty: 30 0RF Continued prednisone 5 mg tablet 5 mg PO QDL pantoprazole 40 mg tablet,delayed release (DR/EC) 40 mg PO QDL metformin 500 mg tablet extended release 24 hr 500 mg PO QDL duloxetine 60 mg capsule,delayed release(DR/EC) 60 mg PO DAILY Orencia ClickJect 125 mg/mL auto-injector 125 mg SUBCUT WK Rx Instructions: WEDNESDAYS Discontinued losartan 25 mg tablet 25 mg PO DAILY metoprolol tartrate 50 mg tablet 50 mg PO BID Discharge Orders: Discharge Order (Routine); Ordered 11/21/24 Ordered By: Wiley Salgado Admission Data Admit Date/Time: 11/17/24 18:52 Attending Provider: Wiley Salgado Admit Provider: Wiley Salgado Primary Care Provider: Micaela Kelley Other Providers: Eusebio Mosher; Josh Noe; María Toney; Redd Wilhelm; Henrry Joe; Elian Early; Gokul Ryan; Des Miranda; Marilyn Mendoza; Carolyne Mariscal; Mimi Elise; Renata Goel; María Mcdowell; Huber Dimas; Grover Mcclellan; Swetha Deleon; Karena Toure; Britany David; Viviane Macedo; Kirk Anderson; Dora Maldonado; Татьяна Drummond; Ruddy Parrish; Raji Quinteros N
[2024-11-21 12:53] VITALS: BP 168/67
[2024-11-21 15:44] VITALS: PULSE 66
== END 2024-11-21 15:35 | disposition home or self-care (01) | DRG 304 ==
LOC: 1E 11:43 → ED 11:43 → SUATTDRO 14:59 → 1E 16:47 → 2E 20:29 → SUATTDRO 11-17 18:52